=== PATIENT | female | born 1980 | race Caucasian/White ===

== ENCOUNTER 2018-08-13 14:31 | Outpatient (REF) | payer SELFPAY ==
--- NOTE | 2018-08-13 13:15 | PAPFT_PTH ---
PATIENT: Marie Linsday LOC: [facility] U#:[id number] AGE/SX: 38/F ROOM: RE08/13/[address]: Peggy Figueroa NP : 1980 BED: DIS: 08/13/2018 SPEC #: [id number] RECD: 08/13/18 18:11 STATUS: BRINDA SHAFFER #: [id number] CARLITO: 08/13/18 13:[address]: Peggy Figueroa NP DEPT: [facility] Cytology RECD BY: Francesca Wiseman Tissues: 1 - CX/ENDOCX FOR PAP SMEARS Procedures: PAP THIN PREP/UVM Screening HPV DNA PROBE Comments: [id number] (CHLAMYDIA/GC)
[2018-08-14 13:46] LABS: Chlamydia Result Negative; GC Result Negative; Specimen Description SEE COMMENTS
== END 2018-08-13 14:51 ==
LOC: LBN 14:31
PROVIDERS: Visit Provider Nurse Practitioner Women's Health
DX: Z12.4 Encounter for screening for malignant neoplasm of cervix (principal); Z11.51 Encounter for screening for human papillomavirus (HPV)
CPT/HCPCS: 87491; 87591; 88142; 87624

== ENCOUNTER 2018-08-14 07:55 | Outpatient (CLI) | payer SELFPAY ==
--- NOTE | 2018-08-14 09:49 | DI.US_ITS ---
SYMPTOM/DIAGNOSIS: IUD STRINGS NOT AT CERVIX T83.32XA, DISPLACEMENT OF INTRAUTERINE CONTRACEPTIVE DEVICE PELVIC ULTRASOUND: Transabdominal and transvaginal examination was performed. The uterus measures 9 cm long x 4 cm AP x 5.6 cm transverse. There is an intrauterine device seen in the fundal endometrial canal. Cervical Nabothian cysts are present. No myometrial mass is present. The endometrial stripe is not well visualized. The ovaries are visualized and are grossly unremarkable. No free pelvic fluid or hydronephrosis is identified. IMPRESSION: Intrauterine device is visualized in the fundal aspect of the endometrial canal.
== END 2018-08-14 08:15 ==
PROVIDERS: Visit Provider Nurse Practitioner Women's Health
DX: T83.32XA Displacement of intrauterine contraceptive device, initial encounter (principal)
CPT/HCPCS: 76830; 76856

== ENCOUNTER 2019-04-10 21:21 | Emergency (ER) | payer MEDICAID, SELFPAY ==
[2019-04-10 21:21] VITALS: BP 126/75; PULSE 129; RESP 20; TEMP 36.7; O2SAT 97
[2019-04-10 21:24] VITALS: RESP 20
[2019-04-10 21:50] LABS: Abs Immature Grans 0.02 k/cumm (0.0-0.09); Absolute Basophil Count 0.03 k/cumm (0.0-0.2); Absolute Eosinophil Count 0.13 k/cumm (0.0-0.7); Absolute Lymphocyte Count 1.03 k/cumm (1.2-3.4); Absolute Monocyte Count 0.92 k/cumm (0.11-0.7); Absolute Neutrophil Count 6.24 k/cumm (1.2-6.7); Basophils % 0.4; Eosinophils % 1.6; HCT 42.6 % (36.0-46.0); HGB 14.7 g/dL (12.0-15.5); Immature Grans % 0.2 %; Lymphocytes % 12.3; Mean Corp. HGB Concentration 34.5 g/dL (32.0-36.0); Mean Corpuscular Hemoglobin 28.7 pg (27.0-33.0); Mean Platelet Volume 11.1 fL (8.0-11.0); Neutrophils % 74.5; Platelet Count 175 x1000/uL (130-400); RBC 5.13 m/cumm (4.00-5.20); RBC Distribution Width 13.1 % (11.7-14.6); White Blood Cell Count 8.37 k/cumm (4.4-10.8)
[2019-04-10] MEDS: Acetaminophen 500 MG TAB 1000 MG PO (21:52)
[2019-04-10] MEDS: Normal Saline 1,000 ML 1000 ML IV (21:52)
[2019-04-10] MEDS: Ondansetron 4 MG/2 ML VIAL IVP (21:53)
[2019-04-10 22:06] LABS: ETHANOL BLOOD 95.1 mg/dL (<3)
[2019-04-10 22:09] LABS: ALT 25 U/L (14-59); AST 24 U/L (15-37); Albumin 3.8 g/dL (3.4-5.0); Alkaline Phosphatase 69 U/L (46-116); Anion Gap 15.5 mmol/L (3-11); BUN 8 mg/dL (7-18); Bilirubin, Total 0.1 mg/dL (0.2-1.0); CO2 19.5 mmol/L (21.0-32.0); CREATININE 0.81 mg/dL (0.55-1.02); Calcium 8.5 mg/dL (8.5-10.1); Chloride 101 mmol/L (98-107); Glucose 186 mg/dL (74-106); Potassium 3.6 mmol/L (3.5-5.1); Sodium 136 mmol/L (136-145); Total Protein 7.5 g/dL (6.4-8.2)
--- NOTE | 2019-04-10 22:11 | W.ED.GENAD ---
Discharge Plan Disposition Patient Disposition: HOME Condition: Good Discharge Details Chief Complaint: Dizzy/Sync Clinical Impression: Syncope, Dehydration Primary Care Provider: None,None ED Provider: Trevon Diallo Home Meds and New Rx's Prescriptions: No Action medroxyprogesterone [Depo-Provera] 150 mg/mL suspension 150 mg IM [id number] Qty: 1 RF: 3 lgysqrggup-kwmhcug-spwnpjkf [Fiorinal] 1 EACH capsule 1 tab-cap PO Q4H PRN Qty: 30 RF: 1 naproxen sodium [Aleve] 220 mg tablet 220 mg PO BID RF: 0 Discharge Instructions Instructions: Dehydration (ED), Syncope (ED) Additional Instructions: At this time I suspect that your cause of fainting was dehydration combined with the alcohol. Please make sure to drink 10 to 12 cups of water per day. Take Tylenol or Motrin as needed for your flulike illness. If you notice any worsening of your symptoms, or any new symptoms such as vomiting, diarrhea, fever, chills, shortness of breath, chest pain, numbness, weakness, or fainting , please return immediately to the emergency department for reevaluation. Please follow up with your primary care provider as soon as possible for reassessment and reevaluation. As always, it was a pleasure participating in your medical care today. Medical Decision Making 38-year-old female with no significant past medical history who presents today for evaluation of syncope. Patient states that her child was just diagnosed with a flulike illness 4 days ago, she is subsequently caught though symptoms of fever, chills, congestion, runny nose. However today was her birthday, she went to the bar, took 1 NyQuil, had a few drinks, took a few shots, and unfortunately after this when she was standing got very lightheaded and passed out. She had a barstool with the back of her head on the right. She was able to be awoken easily, she is able to ambulate after that. Signs are pain in her posterior right scalp she denies any other complaints. She has been drinking a fair amount of coffee throughout the day as well. The patient denies any chest pain, palpitations or shortness of breath. She denies a history of syncope, family history of at an early age, or dysrhythmias. Physical exam demonstrates no signs of significant trauma. She does have mild tenderness over the right posterior mastoid process. No midline cervical spine tenderness. I suspect the patient's symptoms are likely from notable dehydration in combination with being sick and then mild to moderate amount of alcohol intake. However we will evaluate for acute intracranial abnormality with a CT scan of the head. EKG shows no significant abnormalities. Electrolytes unremarkable. We will continue to monitor and closely reassess. We will rehydrate as well. 10:51 PM Patient's laboratory work-up is returned, patient demonstrates no significant abnormality, she does show evidence of mild dehydration, no white count, no bandemia. Renal function stable. Troponin normal, EKG unremarkable. CT scan has returned and demonstrates no acute process per virtual radiology. No significant abnormality. No evidence of bleed. Patient feels much better and is asking to go home. She has been rehydrated. She shows no signs of clinical intoxication at this time. At this time I do feel that she is stable for discharge. I feel her syncope was likely secondary to her alcohol, dehydration, and viral URI. And inconsistent with a cardiac etiology. Patient did get up and ambulated well with no signs of difficulty or abnormality. Discussed red flags which to return. I have extensively reviewed the treatment plan and discharge instructions with the patient. I have addressed all patient concerns at this time. The patient was made aware of what symptoms to monitor for that would warrant a return to the emergency department. Discussed the plan with the patient, they demonstrate verbal understanding and agreement with our assessment and plan at this time. EKG 21: 30 Rate 126, intervals normal, sinus tachycardia, no significant ST elevations or depressions. No evidence of STEMI. There is inverted T wave in lead III, but no other significant abnormalities. FINDINGS: Brain: No evidence for acute transcortical infarct. No mass effect or midline shift. No extra-axial collection. No acute intracranial hemorrhage. Basal cisterns are patent. Ventricles: Normal. No ventriculomegaly. Bones/joints: Unremarkable. No acute fracture. Sinuses: Visualized sinuses are unremarkable. No fluid levels. Mastoid air cells: Visualized mastoid air cells are well aerated. Soft tissues: Unremarkable. IMPRESSION: No acute intracranial hemorrhage or mass effect. FINDINGS: Vertebrae: No acute fracture or traumatic subluxation. No spondylolisthesis. The atlantooccipital and atlantoaxial articulations are intact. Facet joint alignments are maintained. Discs/Spinal canal/Neural foramina: No disc herniations. No spinal canal stenosis. No neural foraminal narrowing. Other bones/joints: Occipital condyles are intact. Prevertebral Space: No prevertebral soft tissue swelling. Soft tissues: Unremarkable. Lungs: Lung apices are normal. IMPRESSION: No acute fracture or traumatic subluxation. Thank you for allowing us to participate in the care of your patient. Dictated and Authenticated by: Alvaro Felton MD 04/10/2019 10:46 PM Eastern Time ([place] & [place]) HPI General Date/Time Provider Initiated Documentation: 04/10/19 21:26. HPI Narrative: 38-year-old female with no significant past medical history who presents today for evaluation of syncope. Patient states that her child was just diagnosed with a flulike illness 4 days ago, she is subsequently caught though symptoms of fever, chills, congestion, runny nose. However today was her birthday, she went to the bar, took 1 NyQuil, had a few drinks, took a few shots, and unfortunately after this when she was standing got very lightheaded and passed out. She had a barstool with the back of her head on the right. She was able to be awoken easily, she is able to ambulate after that. Signs are pain in her posterior right scalp she denies any other complaints. She has been drinking a fair amount of coffee throughout the day as well. The patient denies any chest pain, palpitations or shortness of breath. She denies a history of syncope, family history of at an early age, or dysrhythmias. She has no other complaints at this time. No other modifying factors. Related Data Home Medications Medication Instructions Recorded Confirmed cnbzqqaweh-vwkwnle-quckernv 1 tab-cap PO Q4H PRN #30 tab-cap 04/23/17 04/10/19 [Fiorinal 50-325-40 Mg Capsule] medroxyprogesterone 150 mg/mL 150 mg IM [id number] #1 ml 08/19/18 04/10/19 intramuscular suspension naproxen sodium 220 mg tablet 220 mg PO BID tab 12/02/18 04/10/19 Previous Rx's Medication Instructions Recorded rxsbcynvja-lscfjpz-ustfyozx 1 tab-cap PO Q4H PRN #30 tab-cap 04/23/17 [Fiorinal 50-325-40 Mg Capsule] medroxyprogesterone 150 mg/mL 150 mg IM [id number] #1 ml 08/19/18 intramuscular suspension Allergies Allergy/AdvReac Type Severity Reaction Status Date / Time erythromycin base Allergy Intermediate Vomitting, Verified 04/10/19 21:24 itchy chocolate flavor Allergy Mild Verified 04/10/19 21:24 Penicillins Allergy Mild Uncertain-infant Verified 04/10/19 21:24 reaction coconut flavor Allergy Anaphylaxsi Uncoded 04/10/19 21:24 s Dust AdvReac Uncoded 04/10/19 21:24 General Stated Complaint: Dizzy/Sync IMANI: 3 Review of Systems All systems reviewed & are unremarkable except as noted in HPI and below PFSH Social History Smoking/Tobacco Use Status: Current every day Alcohol Intake: current Drug use: Never Substance use type: does not use Do you feel safe at home: Yes Do you feel safe in your relationship?: Yes Female Reproductive History Menstrual Age of Menarche: 15 control method: permanent sterilization History History 4 Para 4 Hx # Term Pregnancies Multiple births Hx # Pregnancies Ectopic pregnancies AB induced Hx Number of Living Children AB spontaneous Exam Narrative Exam Narrative: 1.Const: Well-nourished, Well-developed, appearing stated age 2.Eyes: PERRL, no conjunctival injection, and symmetrical lids. 3.ENT: Atraumatic external nose and ears. Moist MM. Neck: Symmetric, trachea midline, No thyromegaly. There is no evidence of raccoon eyes, sanchez sign, CSF rhinorrhea, mastoid tenderness, cranial crepitus, hemotympanum, exophthalmos, or hyphema. Patient demonstrates intact dentition with no signs of tooth avulsion or fracture, no signs of jaw deformity, no evidence of a LeFort's fracture, with an intact palate, nose and orbital region. There is no evidence of a nasal septal hematoma. No proptosis. Jaw closes symmetrically. Airway is clear. Minimal tenderness over the right mastoid. Patient demonstrates good movement of cervical neck. There is no nuchal rigidity, no nuchal tenderness. Patient is able to flex the neck without any difficulty or significant pain. Negative Kernig's and Brudzinski sign. 4.CVS: +S1/S2, No murmurs or gallops. Peripheral pulses 2+ and equal in all extremities. Brisk capillary refill in all extremities. 5.RESP: Unlabored respiratory effort. Clear to auscultation bilaterally. No wheezes rales or rhonchi 6.GI: Soft, Nontender/Nondistended, No hepatosplenomegaly. No guarding or rebound. 7.MSK: Normocephalic/Atraumatic, Extremities w/o deformity or ttp No cyanosis or clubbing, Normal movement of all extremities. No midline cervical thoracic or lumbar spine tenderness. No pain in the neck. 8.Skin: Warm, Dry. No rashes or lesions. 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 Sensation grossly intact, no focal neurologic deficits. All 6 cardinal planes of vision are fully intact. No evidence of rotatory or vertical nystagmus. The patient demonstrated a normal hlajel-zmps-pakfzu, good dexterity. There was no evidence of dysdiadochokinesia. Patient was able to ambulate without difficulty. There was no wide-based gait. Romberg testing was normal. Bvgx-hs-lkte testing was normal. Sensation was intact bilaterally as well as muscle strength bilaterally for all extremities. Patient was able to verbalize butter cup with no slurring, or miss pronunciation. 10.Psych: (AAO) x3. Appropriate mood and affect Course Vital Signs Vital signs: Vital Signs Temperature 36.7 C 04/10/19 21:21 Pulse 129 H 04/10/19 21:21 Respiratory Rate 20 04/10/19 21:21 Blood Pressure 126/75 04/10/19 21:21 Pulse Oximetry 97 04/10/19 21:21 Temperature 36.7 C 04/10/19 21:21 Temperature Source Temporal Artery Scan 04/10/19 21:21 Pulse 129 H 04/10/19 21:21 Respiratory Rate 20 04/10/19 21:24 Respiratory Effort Non-Labored 04/10/19 21:24 Respiratory Depth Normal 04/10/19 21:24 Respiratory Pattern Normal 04/10/19 21:24 Blood Pressure 126/75 04/10/19 21:21 Pulse Oximetry 97 04/10/19 21:21 Oxygen Delivery Method Room Air 04/10/19 21:21 Oxygen Flow Rate 0 04/10/19 21:21 Pain Level 4 04/10/19 21:21 Lab/Test Results Lab/Test Results: 04/10/19 21:53 Nasopharynx Influenza Types A,B Antigen - Pending Laboratory Tests Range/Units 04/10/19 21:46 WBC (4.4-10.8) k/cumm 8.37 RBC (4.00-5.20) m/cumm 5.13 Hgb (12.0-15.5) g/dL 14.7 Hct (36.0-46.0) % 42.6 MCV (80-95) fL 83.0 MCH (27.0-33.0) pg 28.7 MCHC (32.0-36.0) g/dL 34.5 RDW (11.7-14.6) % 13.1 Plt Count (130-400) x1000/uL 175 MPV (8.0-11.0) fL 11.1 H Immature Gran % % 0.2 Neutrophils % 74.5 Lymphocytes % 12.3 Monocytes % 11.0 Eosinophils % 1.6 Basophils % 0.4 Absolute Neutrophils (1.2-6.7) k/cumm 6.24 Absolute Lymphocytes (1.2-3.4) k/cumm 1.03 L Absolute Monocytes (0.11-0.7) k/cumm 0.92 H Absolute Eosinophils (0.0-0.7) k/cumm 0.13 Absolute Basophils (0.0-0.2) k/cumm 0.03
--- NOTE | 2019-04-10 22:26 | DI.CT_ITS ---
EXAM: CT HEAD CERVICAL SPINE WO CT HEAD CERVICAL SPINE WO CLINICAL HISTORY: fall, etoh, pain right mastoid after trauma. fall, etoh, pain right mastoid after trauma TECHNIQUE: Imaging Protocol: Axial computed tomography images with coronal and sagittal reformatted images were created and reviewed COMPARISON: No exams were available for comparison FINDINGS: Head CT Ventricles and Extra axial spaces: Normal in size and morphology for the patient's age. Hemorrhage: None. Cerebral parenchyma: Normal. Midline shift: None. Brainstem/Cerebellum: Normal. Calvarium: Normal. Visualized Paranasal sinuses/Mastoids: Clear. IMPRESSION: No acute abnormality. FINDINGS: Cervical Spine CT The exam is somewhat limited by patient body habitus. BONES: Vertebral body heights are maintained. Intervertebral disc spaces are normal. Alignment is normal. There is no evidence of acute fracture. SOFT TISSUES: No paraspinal hematoma. The airway appears intact. No pneumothorax is seen at the edgar g apices. IMPRESSION: No acute abnormality. DATA REPOSITORY: All CT scans at this facility are submitted to the National Radiology Data Registry (NRDR) Dose Index Registry (DIR) with the [employer] (ACR). RADIATION OPTIMIZATION: All CT scans at this facility use at least one of these dose optimization te chniques: automated exposure control; mA and/or kV adjustment per patient size (includes targeted exa ms where dose is matched to clinical indication); or iterative reconstruction.
[2019-04-10 22:41] LABS: Troponin I < 0.05 ng/Ml (<0.06)
--- NOTE | 2019-04-10 22:47 | DI.VRAD_ITS ---
PROCEDURE INFORMATION: Exam: CT Head Without Contrast Exam date and time: 04/10/2019 9:37 PM Age: 38 years old Clinical indication: Injury or trauma; Initial encounter; Blunt trauma; Patient HX: Fall, ETOH, pain right mastoid after trauma TECHNIQUE: Imaging protocol: Computed tomography of the head without contrast. COMPARISON: No relevant prior studies available. FINDINGS: Brain: No evidence for acute transcortical infarct. No mass effect or midline shift. No extra-axial collection. No acute intracranial hemorrhage. Basal cisterns are patent. Ventricles: Normal. No ventriculomegaly. Bones/joints: Unremarkable. No acute fracture. Sinuses: Visualized sinuses are unremarkable. No fluid levels. Mastoid air cells: Visualized mastoid air cells are well aerated. Soft tissues: Unremarkable. IMPRESSION: No acute intracranial hemorrhage or mass effect. PROCEDURE INFORMATION: Exam: CT Cervical Spine Without Contrast Exam date and time: 04/10/2019 9:37 PM Age: 38 years old Clinical indication: Injury or trauma; Initial encounter; Blunt trauma; Patient HX: Fall, ETOH, pain right mastoid after trauma TECHNIQUE: Imaging protocol: Computed tomography images of the cervical spine without contrast. COMPARISON: No relevant prior studies available. FINDINGS: Vertebrae: No acute fracture or traumatic subluxation. No spondylolisthesis. The atlantooccipital and atlantoaxial articulations are intact. Facet joint alignments are maintained. Discs/Spinal canal/Neural foramina: No disc herniations. No spinal canal stenosis. No neural foraminal narrowing. Other bones/joints: Occipital condyles are intact. Prevertebral Space: No prevertebral soft tissue swelling. Soft tissues: Unremarkable. Lungs: Lung apices are normal. IMPRESSION: No acute fracture or traumatic subluxation. Dictated and Authenticated by: Alvaro Felton MD. Ordering:CHANG Lester MD
[2019-04-10 22:58] VITALS: BP 114/65; PULSE 104; RESP 16; TEMP 37.1; O2SAT 99
== END 2019-04-10 23:09 | disposition home or self-care (01) ==
PROVIDERS: Emergency Provider Student in an Organized Health Care Education/Training Program
DX: J10.1 Influenza due to other identified influenza virus with other respiratory manifestations (principal); E86.0 Dehydration; S09.90XA Unspecified injury of head, initial encounter; W19.XXXA Unspecified fall, initial encounter
CPT/HCPCS: 36415; 80053; 87449; 93005; 96361; 96374; 99285; 70450; 72125; 80320; 84484; 85025; 93010; 99284; J2405

== ENCOUNTER 2019-07-12 21:32 | Outpatient (REF) | payer MEDICAID, SELFPAY ==
[2019-07-14 14:59] LABS: Chlamydia Result Negative (Negative); GC Result Negative (Negative)
== END 2019-07-12 21:52 ==
LOC: LBN 21:32
PROVIDERS: Visit Provider Nurse Practitioner Family
DX: Z11.3 Encounter for screening for infections with a predominantly sexual mode of transmission (principal)
CPT/HCPCS: 87491; 87591

== ENCOUNTER 2019-10-25 10:59 | Outpatient (REF) | payer MEDICAID, SELFPAY ==
--- NOTE | 2019-10-25 10:30 | PAPFT_PTH ---
PATIENT: Marie Lindsay LOC: [facility] U#:[id number] AGE/SX: 39/F ROOM: RE10/25/[address]: TREY Noe : 1980 BED: DIS: 10/25/2019 SPEC #: [id number] RECD: 10/25/19 12:59 STATUS: BRINDA REQ #: [id number] CARLITO: 10/25/19 10:[address]: Saloni Roberts DEPT: [facility] Cytology RECD BY: Francesca Wiseman ENTERED: 10/25/19 12:59 SP TYPE: PAPFT MARSHA DR: Unknown,Unknown Tissues: 1 - CX/ENDOCX FOR PAP SMEARS Procedures: PAP THIN PREP/UVM Screening HPV DNA PROBE Comments: [id number]
== END 2019-10-25 11:19 ==
LOC: LBN 10:59
PROVIDERS: Visit Provider Nurse Practitioner Family
DX: R87.810 Cervical high risk human papillomavirus (HPV) DNA test positive (principal); R87.610 Atypical squamous cells of undetermined significance on cytologic smear of cervix (ASC-US)
CPT/HCPCS: 88142; 87624

== ENCOUNTER 2020-01-13 07:21 | Outpatient (CLI) | payer MEDICAID, SELFPAY ==
[2020-01-16 20:55] LABS: Patient Race White; SARS-CoV-2 RNA Undetected (Undetected); SARS-CoV-2 Specimen Source Nasal
== END 2020-01-13 07:41 ==
PROVIDERS: Visit Provider Family Medicine
DX: Z20.828 Contact with and (suspected) exposure to other viral communicable diseases (principal)
CPT/HCPCS: U0003

== ENCOUNTER 2020-01-24 11:52 | Outpatient (REF) | payer MEDICAID, SELFPAY ==
--- NOTE | 2020-01-24 10:50 | CER_PTH ---
PATIENT: Marie Lindsay LOC: [facility] U#:[id number] AGE/SX: 39/F ROOM: RE01/24/[address]: Ayleen Akbar DO : 1980 BED: DIS: 01/24/2020 SPEC #: [id number] RECD: 01/24/20 12:58 STATUS: BRINDA REQ #: [id number] CARLITO: 01/24/20 10:[address]: Ayleen Akbar DEPT: Surgical Specimen RECD BY: Francesca Wiseman ENTERED: 01/24/20 12:58 SP TYPE: CER MARSHA DR: Unknown,Unknown Tissues: 1 - CERVICAL BIOPSY 2 - ENDOCERVICAL BX/CURRETTE Procedures: GROSS AND MICRO LEVEL 4 Comments: [id number]
== END 2020-01-24 12:12 ==
LOC: LBN 11:52
PROVIDERS: Visit Provider Obstetrics & Gynecology
DX: N88.8 Other specified noninflammatory disorders of cervix uteri (principal); R87.610 Atypical squamous cells of undetermined significance on cytologic smear of cervix (ASC-US); R87.810 Cervical high risk human papillomavirus (HPV) DNA test positive
CPT/HCPCS: 88305

== ENCOUNTER 2020-02-14 12:39 | Outpatient (CLI) | payer MEDICAID, SELFPAY ==
[2020-02-16 17:06] LABS: COVID-19 RT-PCR Result NEGATIVE (Negative)
== END 2020-02-14 12:59 ==
PROVIDERS: Visit Provider Family Medicine
DX: Z11.59 Encounter for screening for other viral diseases (principal)
CPT/HCPCS: U0003

== ENCOUNTER 2020-08-23 09:29 | Emergency (ER) | payer MEDICAID, SELFPAY ==
--- NOTE | 2020-08-23 09:30 | DI.RAD_ITS ---
Exam(s) XR FOOT LT COMPLETE EXAM: XR FOOT LT COMPLETE CLINICAL HISTORY: Fall, R/O Fracture. TECHNIQUE: 2D digital imaging was performed. COMPARISON: No exams were available for comparison FINDINGS: There is no evidence of acute fracture nor diastasis of the Lisfranc joint on these nonweightbearing views. Accessory ossicles are noted lateral to the cuboid bone as well as just proximal to the navic ular tuberosity which is probably a sesamoid within the distal tibialis posterior tendon. No radiopa que foreign body. No osseous lesions. No osseous tarsal coalition. IMPRESSION: No obvious fractures evident. DATA REPOSITORY: RADIATION DOSE DELIVERED:
--- NOTE | 2020-08-23 09:30 | DI.RAD_ITS ---
Exam(s) XR ANKLE LT COMPLETE EXAM: XR ANKLE LT COMPLETE CLINICAL HISTORY: Fall, R/O Fracture. TECHNIQUE: 2D digital imaging was performed. COMPARISON: No exams were available for comparison FINDINGS: There is no evidence of fracture or widening of the mortise. Talar dome appears unremarkable. No de generative changes. No osseous tarsal coalition. Bone density appears normal IMPRESSION: No fracture evident. DATA REPOSITORY: RADIATION DOSE DELIVERED:
[2020-08-23 09:31] VITALS: BP 138/85; PULSE 86; RESP 16; TEMP 36.6; O2SAT 98
--- NOTE | 2020-08-23 09:38 | ED.GENADUL_ITS ---
Discharge Plan Disposition Patient Disposition: HOME Condition: Stable Discharge Details Clinical Impression: Inversion sprain of left ankle Primary Care Provider: Unknown,Unknown ED Provider: Rachel Estes Home Meds and New Rx's Prescriptions: No Action medroxyprogesterone [Depo-Provera] 150 mg/mL suspension 150 mg IM Q12W Qty: 1 RF: 3 naproxen sodium [Aleve] 220 mg tablet 220 mg PO DAILY PRNRF: 0 leybpndqjt-ukrhsve-esufaxnl [Fiorinal 50-325-40 Mg Capsule] 1 EACH capsule 1 tab-cap PO Q4H PRN PRNRF: 0 Discharge Instructions Instructions: Ankle Sprain (ED) Additional Instructions: Wear walking boot for comfort crutches as needed. Rest ice compression elevation. May need to elevate it for at least 3 to 4 days. Insert ibuprofen. Sprains may take up to 6 weeks or longer to completely heal. He may still have some pain swelling for the duration of the 6 weeks. Follow up with primary care provider in 3-5 days. Return to ED sooner if any worsening or concerns. Increase oral fluids. If you continue to have problems you may follow-up with orthopedics in 1 to 2 weeks as Referrals: Moustapha Queen MD [ [facility] STAFF PHYSICIAN] - Medical Decision Making 40-year-old female presents to the ER chief complaint of left ankle and foot pain status post a mechanical fall which occurred on Friday night. Patient states that she stepped into a hole and inverted her left ankle and fell over onto her left side. She was able to get up after the fall. She has been taking Tylenol and ibuprofen since then with little to no relief. She reports increased pain with ambulation, ankle flexion and extension. She does drive a standard car and uses the clutch is also a instructor business education by trade. She has a past medical history of menstrual migraines. She is a current everyday smoker. Denies any illicit drugs. She currently is on the Depo-Provera injection denies chance of . X-ray left foot and ankle ordered to rule out fracture, ibuprofen 800 mg ordered. Patient placed in walking boot given crutches discussed x-ray results, verbalized understanding. Instructed on rest ice compression elevation follow-up with Ortho if no better in 4 to 6 weeks. This text was generated using [employer] system, please disregard any oddities of phrase or misspellings. HPI General Mode of arrival: ambulatory . Date/Time Provider Initiated Documentation: 08/23/20 09:29 . Limitations to Documentation: no limitations . Information obtained by: patient . HPI Narrative: 40-year-old female presents to the ER chief complaint of left ankle and foot pain status post a mechanical fall which occurred on Friday night. Patient states that she stepped into a hole and inverted her left ankle and fell over onto her left side. She was able to get up after the fall. She has been taking Tylenol and ibuprofen since then with little to no relief. She reports increased pain with ambulation, ankle flexion and extension. She does drive a standard car and uses the clutch is also a instructor business education by trade. She has a past medical history of menstrual migraines. She is a current everyday smoker. Denies any illicit drugs. She currently is on the Depo-Provera injection denies chance of . Related Data Home Medications Medication Instructions Recorded Confirmed naproxen sodium 220 mg tablet 220 mg PO DAILY PRN tab 07/12/19 08/23/20 medroxyprogesterone 150 mg/mL 150 mg IM Q12W #1 ml 04/14/20 08/23/20 intramuscular suspension brsnwxliyb-numanew-suziezdl 1 tab-cap PO Q4H PRN PRN 08/23/20 08/23/20 [Fiorinal 50-325-40 Mg Capsule] Previous Rx's Medication Instructions Recorded medroxyprogesterone 150 mg/mL 150 mg IM Q12W #1 ml 04/14/20 intramuscular suspension Allergies Allergy/AdvReac Type Severity Reaction Status Date / Time erythromycin base Allergy Intermediate Vomitting, Verified 08/23/20 09:39 itchy chocolate flavor Allergy Mild Verified 08/23/20 09:39 Penicillins Allergy Mild Uncertain- Verified 08/23/20 09:39 reaction coconut flavor Allergy Anaphylaxsi Uncoded 08/23/20 09:39 s Dust AdvReac Uncoded 08/23/20 09:39 General IMANI: 3 Review of Systems All systems reviewed & are unremarkable except as noted in HPI and below Musculoskeletal Musculoskeletal: Reports as per HPI, Denies deformity, Reports arthralgias (Left foot and ankle), Denies joint swelling, Denies loss of height, Denies numbness and Reports radiating pain into limb Neurologic Neurologic: Denies numbness PFSH Surgical History section X4 Social History Smoking/Tobacco Use Status: Current every day Smoking risk assessment performed?: Yes Alcohol Intake: current Alcohol Intake frequency: holidays/special occasions only Drug use: Never Substance use type: does not use Do you feel safe at home: Yes Do you feel safe in your relationship?: Yes Female Reproductive History Menstrual Age of Menarche: 15 control method: permanent sterilization History History 4 Para 4 Hx # Term Pregnancies Multiple births Hx # Pregnancies Ectopic pregnancies AB induced Hx Number of Living Children AB spontaneous Exam Narrative Exam Narrative: Constitutional: Alert and oriented x3. Appears stated age. Normal body habitus. Head: Normocephalic, no obvious signs of trauma, no hematoma . Eyes: Eyelids symmetrical without lesions, discharge, or swelling. ENT: External ear normal to inspection Chest: RRR, Normal S1, S2, distal pulses intact. Resp: Breathing eupneic. Musculoskeletal: Normal gait, 5/5 strength to all four extremities. Complaining of medial and lateral malleolus tenderness, medial foot tenderness to palpation, dorsal pedal pulses intact and cap refill less than 2 seconds distal movement intact of toes, tenderness noted with palpation of Achilles tendon. Reports pain radiating up to left leg up to left knee does have a history of left knee problems. No other signs of trauma no other complaints at this time. Skin: No suspicious rashes or lesions. Capillary refill less than 2 sec. Hematologic: No ecchymosis no contusions no abrasions.
[2020-08-23] MEDS: Ibuprofen 800 MG TAB PO (09:46)
== END 2020-08-23 11:02 | disposition home or self-care (01) ==
PROVIDERS: Emergency Provider Registered Nurse Emergency
DX: S93.492A Sprain of other ligament of left ankle, initial encounter (principal); W17.2XXA Fall into hole, initial encounter
CPT/HCPCS: 29515; 99284; 73610; 73630; 99283

== ENCOUNTER 2020-10-16 17:42 | Emergency (ER) | payer MEDICAID, SELFPAY ==
[2020-10-16 17:49] VITALS: BP 136/92; PULSE 78; RESP 16; TEMP 37.1; O2SAT 98
--- NOTE | 2020-10-16 18:15 | DI.RAD_ITS ---
Exam(s) XR FOOT RT COMPLETE EXAM: XR FOOT RT COMPLETE CLINICAL HISTORY: proximal 5th metatarsal pain after injury TECHNIQUE: COMPARISON: CR XR FOOT LT COMPLETE from 08/23/2020 FINDINGS: Three views were obtained. There is no evidence of fracture or dislocation. IMPRESSION: RADIATION DOSE DELIVERED: Total DLP
--- NOTE | 2020-10-16 18:19 | ED.GENADUL_ITS ---
Discharge Plan Disposition Patient Disposition: HOME Condition: Good Discharge Details Clinical Impression: Contusion of foot Primary Care Provider: Unknown,Unknown ED Provider: Dannielle Corea Home Meds and New Rx's Prescriptions: Continued medroxyprogesterone [Depo-Provera] 150 mg/mL suspension 150 mg IM Q12W Qty: 1 RF: 3 rhoysxwmie-xesaqin-vgqkhzyg 50-325-40 mg capsule 1 cap PO Q4H PRN MDD 1 PRN (Reason: migraine headache) Qty: 30 RF: 0 naproxen sodium [Aleve] 220 mg tablet 220 mg PO DAILY PRNRF: 0 Discharge Instructions Instructions: Foot Contusion (ED) Additional Instructions: Imaging is reassuring here today. Please encourage rest, ice, elevation. Tylenol and/or ibuprofen as needed for discomfort. Please take as directed on the packaging. I have asked care management to help arrange for follow up with local primary care. If you develop fevers/chills, increased pain, or other new/worsening symptoms please seek care urgently once again. Discharge Data Discharge Date/Time-TO BE ENTERED AT DEPARTURE: 10/16/20 19:34 Medical Decision Making Patient is a pleasant 40-year-old female presenting today with chief complaint of right foot pain. She reports prior to arrival she misstepped between 2 cinderblocks and suffered a rotational injury. Since then has been having significant pain along the lateral aspect of the right foot. No previous injuries or fractures to this area. States that she has some tingling in the fourth and fifth toes. On exam, patient appears nontoxic. She is just capillary refill, 2+ distal pulses. Full range of motion of the ankle with no pain on palpation of this area. Achilles is intact. No heel pain. No midfoot pain. Able to move all of her toes. Pain is elicited with palpation over the fifth metatarsal, maximal proximally. Concern for potential fracture. Will obtain x-ray. Patient took ibuprofen prior to arrival, will augment this with Tylenol. FINDINGS: Bones/joints: There is no evidence of acute fracture.There is no evidence of malalignment or dislocation. Soft tissues: Normal. IMPRESSION: There is no evidence of acute fracture.There is no evidence of malalignment or dislocation. Discussed these findings with the patient. Advised likely contusion. Encourage rest, ice, elevation. Tylenol and/or ibuprofen as needed for discomfort. Will sit with a postoperative shoe to help with discomfort. Patient does not have a local primary care, have asked our care management team to place a referral for local primary with plan for follow-up in the next 2 weeks for reevaluation. Return precautions were discussed. All of her questions and concerns were addressed, she is in agreement with this plan. HPI General Mode of arrival: ambulatory . Date/Time Provider Initiated Documentation: 10/16/20 18:19 . Limitations to Documentation: no limitations . Information obtained by: patient and RN notes reviewed . History of Present Illness 40 year old F presents to the emergency department with the chief complaint of right foot pain, described as moderate, with intensity rated at 7. Quality is described as aching, and is localized to the right and lower extremity. Patient reports no radiation. Patient started experiencing this hour(s) and it has been constant. Immobilization improves symptom(s), Mov ement worsens symptoms . Patient notes no other symptoms.. Patient did receive the following treatments prior to arrival, none Related Data Home Medications Medication Instructions Recorded Confirmed naproxen sodium 220 mg tablet 220 mg PO DAILY PRN tab 07/12/19 10/16/20 medroxyprogesterone 150 mg/mL 150 mg IM Q12W #1 ml 04/14/20 10/16/20 intramuscular suspension epgagzzdvx-pmgqyjc-dhyuqgdb 50 1 cap PO Q4H PRN PRN #30 cap MDD 1 09/29/20 10/16/20 mg-325 mg-40 mg capsule Previous Rx's Medication Instructions Recorded medroxyprogesterone 150 mg/mL 150 mg IM Q12W #1 ml 04/14/20 intramuscular suspension idhemyemql-vaiiqnn-plemapkp 50 1 cap PO Q4H PRN PRN #30 cap MDD 1 09/29/20 mg-325 mg-40 mg capsule Allergies Allergy/AdvReac Type Severity Reaction Status Date / Time erythromycin base Allergy Intermediate Vomitting, Verified 10/16/20 17:55 itchy chocolate flavor Allergy Mild Verified 10/16/20 17:55 Penicillins Allergy Mild Uncertain-infant Verified 10/16/20 17:55 reaction coconut flavor Allergy Anaphylaxsi Uncoded 10/16/20 17:55 s Dust AdvReac Uncoded 10/16/20 17:55 General Stated Complaint: Orthopedic IMANI: 4 Review of Systems Constitutional Constitutional: Reports as per HPI, Denies chills, Denies fever(s), Denies headache(s) and Denies weakness ENT Ears, Nose, Mouth, and Throat: Denies headache(s) Cardiovascular Cardiovascular: Reports as per HPI Respiratory Respiratory: Reports as per HPI and Denies cough Musculoskeletal Musculoskeletal: Reports as per HPI and Denies tingling Integumentary/Breasts Skin/Breast: Reports as per HPI, Denies rash and Denies wounds Neurologic Neurologic: Reports as per HPI, Denies headache(s), Denies tingling, Denies paresthesias and Denies weakness PFSH Surgical History section X4 Social History Smoking/Tobacco Use Status: Current every day Tobacco Type: cigarettes Smoking risk assessment performed?: Yes Alcohol Intake: current Alcohol Intake frequency: holidays/special occasions only Drug use: Never Substance use type: does not use Current gender identity: female Do you feel safe at home: Yes Do you feel safe in your relationship?: Yes Female Reproductive History Menstrual Age of Menarche: 15 control method: permanent sterilization History History 4 Para 4 Hx # Term Pregnancies Multiple births Hx # Pregnancies Ectopic pregnancies AB induced Hx Number of Living Children AB spontaneous Exam Const General: cooperative, healthy appearing, comfortable, no acute distress, well developed and well groomed Nutritional Appearance: average body habitus and well nourished Orientation: alert and awake Resp Effort & Inspection: normal respiratory effort, able to speak in complete sentences and no respiratory distress Cardio Rate: regular rate Rhythm: regular rhythm Skin General skin exam: no rashes or lesions noted Lesions: no lesions Rashes: no rashes Trauma: no lacerations or abrasions Neuro General: patient alert and patient awake Cognition: normal cognition Speech: speech normal Motor: muscle tone normal throughout Sensory Exam: no sensory deficits noted Extrem Ankle/foot/toe images: 1. Area of discomfort. No visible or palpable deformity, discoloration. She has 2+ distal pulses, brisk capillary refill. Able to move toes and ankle fully. Se nsation intact. No pain over calcaneus. No pain over midfoot. Pain is maximal over the proximal 5th metatarsal. Psych Appearance: grossly normal and well kempt Mental Status: mental status grossly normal Speech and Movement: speech and movement normal Course Vital Signs Vital signs: Vital Signs Temperature 37.1 C 10/16/20 17:49 Pulse 78 10/16/20 17:49 Respiratory Rate 16 10/16/20 17:49 Blood Pressure 136/92 H 10/16/20 17:49 Pulse Oximetry 98 10/16/20 17:49 Temperature 37.1 C 10/16/20 17:49 Temperature Source Temporal Artery Scan 10/16/20 17:49 Pulse 78 10/16/20 17:49 Respiratory Rate 16 10/16/20 17:49 Respiratory Effort Non-Labored 10/16/20 17:53 Blood Pressure 136/92 H 10/16/20 17:49 Blood Pressure Position Sitting 10/16/20 17:49 Pulse Oximetry 98 10/16/20 17:49 Oxygen Delivery Method Room Air 10/16/20 17:49 Oxygen Flow Rate 0 10/16/20 17:49 Pain Level 7 10/16/20 17:56
[2020-10-16] MEDS: Acetaminophen 325 MG TAB 650 MG PO (18:30)
--- NOTE | 2020-10-16 18:52 | DI.VRAD_ITS ---
PROCEDURE INFORMATION: Exam: XR Right Foot Exam date and time: 10/16/2020 6:24 PM Age: 40 years old Clinical indication: Foot; Right; Patient HX: Proximal 5th metatarsal pain after injury TECHNIQUE: Imaging protocol: XR Right foot. Views: 3 or more views. COMPARISON: CR RIGHT ANKLE COMPLETE 12/13/2016 8:01 PM FINDINGS: Bones/joints: There is no evidence of acute fracture.There is no evidence of malalignment or dislocation. Soft tissues: Normal. IMPRESSION: There is no evidence of acute fracture.There is no evidence of malalignment or dislocation. Dictated and Authenticated by: Kerrie Plummer MD. Ordering:BRITNEY Spicer MD
--- NOTE | 2020-10-17 06:39 | NUR.NOTE ---
Nursing Note: referral to care management 10/17/20 patient needs pcp. - libl
== END 2020-10-16 19:34 | disposition home or self-care (01) ==
PROVIDERS: Emergency Provider Physician Assistant
DX: S90.31XA Contusion of right foot, initial encounter (principal); X50.1XXA Overexertion from prolonged static or awkward postures, initial encounter
CPT/HCPCS: 99283; 73630

== ENCOUNTER 2020-11-14 08:25 | Outpatient (CLI) | payer MEDICAID, SELFPAY ==
--- NOTE | 2020-11-14 08:15 | DI.RAD_ITS ---
Exam(s) XR KNEE LT 3V AP,LAT,DAVID EXAM: XR KNEE LT 3V AP,LAT,DAVID CLINICAL HISTORY: L knee pain. TECHNIQUE: 2D digital imaging was performed. COMPARISON: CR LEFT KNEE 3 VIEW COMPLETE from 12/13/2016 FINDINGS: BONES: No acute fracture is present. No bony destructive lesion is seen. JOINTS: The knee is normally aligned. No joint effusion is seen. SOFT TISSUE: Normal. IMPRESSION: Normal radiographs of the left knee. DATA REPOSITORY: RADIATION DOSE DELIVERED:
== END 2020-11-14 08:26 | disposition home or self-care (01) ==
LOC: DIORS 08:25
PROVIDERS: Visit Provider Physician Assistant
DX: M25.562 Pain in left knee (principal)
CPT/HCPCS: 73562

== ENCOUNTER 2020-12-22 13:00 | Outpatient (REF) | payer MEDICAID, SELFPAY ==
--- NOTE | 2020-12-22 10:30 | PAPFT_PTH ---
PATIENT: Marie Lindsay LOC: [facility] U#:[id number] AGE/SX: 40/F ROOM: RE12/22/[address]: TREY Noe : 1980 BED: DIS: 12/22/2020 SPEC #: [id number] RECD: 12/22/20 13:12 STATUS: BRINDA REQ #: [id number] CARLITO: 12/22/20 10:[address]: Saloni Roberts DEPT: [facility] Cytology RECD BY: Francesca Wiseman Tissues: 1 - CX/ENDOCX FOR PAP SMEARS Procedures: PAP THIN PREP/UVM Screening HPV DNA PROBE Comments: [id number]
== END 2020-12-22 13:01 | disposition home or self-care (01) ==
LOC: LBN 13:00
PROVIDERS: Visit Provider Nurse Practitioner Family
DX: Z12.4 Encounter for screening for malignant neoplasm of cervix (principal); Z11.51 Encounter for screening for human papillomavirus (HPV); R87.612 Low grade squamous intraepithelial lesion on cytologic smear of cervix (LGSIL); R87.820 Cervical low risk human papillomavirus (HPV) DNA test positive
CPT/HCPCS: 88142; 87624

== ENCOUNTER 2021-04-17 16:45 | Emergency (ER) | payer MEDICAID, SELFPAY ==
[2021-04-17 16:49] VITALS: BP 158/88; PULSE 82; RESP 16; TEMP 37.1; O2SAT 99
--- NOTE | 2021-04-17 17:13 | ED.GENADUL_ITS ---
Discharge Plan Disposition Patient Disposition: HOME Condition: Stable Discharge Details Clinical Impression: Viral syndrome Primary Care Provider: Katiana,Local ED Provider: Jewel Gutierrez Home Meds and New Rx's Prescriptions: Continued medroxyprogesterone [Depo-Provera] 150 mg/mL syringe 150 mg IM ONCE Qty: 1 0RF medroxyprogesterone [Depo-Provera] 150 mg/mL suspension 150 mg IM Q12W Qty: 1 3RF dpsqlehhtg-sbqjqzj-vztkisik 50-325-40 mg capsule 1 cap PO Q4H PRN MDD 1 PRN (Reason: migraine headache) Qty: 30 0RF ibuprofen 200 mg tablet 200 mg PO Q6H PRN0RF acetaminophen 325 mg capsule 325 mg PO ONCE PRN0RF naproxen sodium [Aleve] 220 mg tablet 220 mg PO DAILY PRN0RF Discharge Instructions Instructions: Viral Syndrome (ED) Additional Instructions: It would appear as though you have a quick acting viral syndrome, this very well could be the flu or Covid. Both your flu test and Covid test are pending and I will call you with the results. Rest, plenty of fluids to avoid dehydration, kawd-yqa-uhwryln medications as directed for symptomatic control. Please watch for new or worsening symptoms and return to the ER for any concerns. I do recommend contacting your primary care provider tomorrow to make them aware of your ER visit and need for outpatient reevaluation. Lastly, I do recommend quarantining until your Covid test has resulted negative, you will need to quarantine longer if it is positive. Medical Decision Making 41-year-old female presents with symptoms such as feeling hot and cold, nasal congestion, body aches, headache, that began suddenly at 11:30 AM today. She denies any chest pain or shortness of breath. She has been vaccinated against COVID but not against the flu. Denies recent sick contacts. Reports that she had Covid back in early January. Took a negative home Covid test today. Clinically she appears well, nontoxic, hemodynamically stable, afebrile, pulse in the eighties, O2 sat 99% on room air. Discussed options with patient. Plan is to obtain a Covid and flu test. I see no clear indication to obtain chest x- ray. Patient is comfortable with this plan. She was given the option of waiting in the ER for her test results or being called, she would like to be discharged home. We did discuss the importance of quarantining until her Covid test has resulted negative. Symptoms began suddenly around 1130 this morning, had been present for only about 5 hours, only discussed that she very well may develop new or evolving symptoms. Standard discharge and return precautions were provided This documentation was generated using [employer] dictation system, please disregard any oddities of phrase or misspellings. At approximately 1745 I contacted the patient to let her know that her flu, COVID, RSV were all negative. This documentation was generated using [employer] dictation system, please disregard any oddities of phrase or misspellings. Medical Records Medical records reviewed: Yes I reviewed the patient's medical records. Lab Data Lab results reviewed: Yes I reviewed the patient's lab results. Labs: Laboratory Tests Range/Units 04/17/21 17:25 COVID-19 Source Nasopharynx SARS-CoV-2 (PCR) (Negative) Negative Influenza Type A (PCR) (Negative) Negative Influenza Type B (PCR) (Negative) Negative RSV (PCR) (Negative) Negative HPI General Date/Time Provider Initiated Documentation: 04/17/21 16:45 . Limitations to Documentation: no limitations . Information obtained by: patient . HPI Narrative: This is a 41-year-old female, current smoker, past medical history of alcohol use, depression, reports that she is fully vaccinated for COVID, did not have the flu vaccine, did have Covid in early January, presenting to the ER for evaluation of symptoms today of runny nose, congestion, body aches, that began around 11:30 AM today. She states that she feels hot and cold but does not have a fever. She took dtpl-jzm-kiuntrk DayQuil with little relief. She denies recent sick contacts. She states that she has had a mild residual cough and lack of taste ever since she was diagnosed with COVID but feels as though though symptoms are unchanged today. She took at home Covid test today which was negative. Related Data Home Medications Medication Instructions Recorded Confirmed naproxen sodium 220 mg tablet 220 mg PO DAILY PRN tab 07/12/19 04/17/21 (Aleve) yzpvdrhfvw-orfkkfi-xacisegs 50 1 cap PO Q4H PRN PRN #30 cap MDD 1 09/29/20 04/17/21 mg-325 mg-40 mg capsule acetaminophen 325 mg capsule 325 mg PO ONCE PRN 11/14/20 04/17/21 ibuprofen 200 mg tablet 200 mg PO Q6H PRN 11/14/20 04/17/21 medroxyprogesterone 150 mg/mL 150 mg IM Q12W #1 ml 03/16/21 04/17/21 intramuscular suspension (Depo-Provera) Previous Rx's Medication Instructions Recorded wyrznbnohp-zbiovvj-cjwoguro 50 1 cap PO Q4H PRN PRN #30 cap MDD 1 09/29/20 mg-325 mg-40 mg capsule medroxyprogesterone 150 mg/mL 150 mg IM Q12W #1 ml 03/16/21 intramuscular suspension (Depo-Provera) Allergies Allergy/AdvReac Type Severity Reaction Status Date / Time erythromycin base Allergy Intermediate Vomitting, Verified 04/17/21 16:57 itchy chocolate flavor Allergy Mild Verified 04/17/21 16:57 Penicillins Allergy Mild Uncertain- Verified 04/17/21 16:57 reaction coconut flavor Allergy Anaphylaxsi Uncoded 04/17/21 16:57 s Dust AdvReac Uncoded 04/17/21 16:57 General Stated Complaint: RespSymp IMANI: 3 Review of Systems Constitutional Constitutional: Reports fatigue, Denies fever(s) and Reports headache(s) ENT Ears, Nose, Mouth, and Throat: Reports headache(s), Denies neck pain and Denies sore throat Cardiovascular Cardiovascular: Denies chest pain and Denies dyspnea Respiratory Respiratory: Denies cough and Denies dyspnea Gastrointestinal Gastrointestinal: Denies abdominal pain, Denies nausea and Denies vomiting Genitourinary Genitourinary: Denies dysuria Musculoskeletal Musculoskeletal: Reports myalgias and Denies neck pain Integumentary/Breasts Skin/Breast: Denies rash Neurologic Neurologic: Reports headache(s) Endocrine Endocrine: Reports fatigue PFSH All Active Problems Viral syndrome (Acute) No-show for appointment (Acute) Other problems related to housing and economic circumstances (Acute) Major depressive disorder, recurrent episode (Chronic) With Anxious Distress. Pt reported on 12/29/20 Dx PPD after 1st child was born who is now 21 y/o. Has struggled with Depression symptoms on and off, not currently on medication, hx of counseling and medication. Would like to establish with a counselor. Dissatisfied with doctor (Acute) Pt reports that she will not go back to her PCP at [facility]. Would like to establish w/ new provider but hesitant to do so. Referred to [facility]. Parenting stress (Acute) Internal derangement of left knee (Acute) Contusion of foot (Acute) Encounter for Depo-Provera contraception (Acute) Inversion sprain of left ankle (Acute 08/21/20) PAVAN II (cervical intraepithelial neoplasia II) (Acute 03/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 Menstrual migraine without status migrainosus, not intractable (Acute 06/19/16) well controlled w/ continuous Sprintec 09/18 initiation of DMPA for control Medical History History of alcohol use disorder Pt reported 12/29/20 that she is in remission but is worried about starting drinking again if stress level increases. History of depression Pt reported on 12/29/20 Dx PPD after 1st child was born who is now 21 y/o. Has struggled with Depression symptoms on and off, not currently on medication, hx of counseling and medication. Would like to establish with a counselor. Surgical History section X4 Social History Smoking/Tobacco Use Status: Current every day Tobacco Type: cigarettes Tobacco: How many years used: 20 Quit status: has quit before Counseling given: patient declined (Patient stated at this time she does not have time to worry about herself. ) Smoking risk assessment performed?: Yes Alcohol Intake: current Alcohol Intake frequency: holidays/special occasions only Drug use: Never Substance use type: does not use Counseling given: Yes (Encouraged patient to reach out to [facility] Current gender identity: female Do you feel safe at home: Yes Do you feel safe in your relationship?: Yes Female Reproductive History Menstrual Age of Menarche: 15 control method: permanent sterilization History History 4 Para 4 Hx # Term Pregnancies Multiple births Hx # Pregnancies Ectopic pregnancies AB induced Hx Number of Living Children AB spontaneous Exam Const General: cooperative, healthy appearing, comfortable and no acute distress Orientation: alert, awake and oriented x3 HENMT Head: normal to inspection, normocephalic and atraumatic Ears: external ears normal, TM's normal bilaterally and EAC's normal General nose exam: nasal discharge clear Mouth: moist mucous membranes Throat: posterior oropharynx normal Eyes General: appearance normal, both eyes and all related structures Conjunctivae: conjunctivae normal Neck Neck: normal visual inspection, full ROM, no lymphadenopathy, no meningeal signs, trachea midline, supple and nontender Resp Effort & Inspection: normal respiratory effort and able to speak in complete sentences Auscultation: not clear to auscultation bilaterally Cardio Rate: regular rate Rhythm: regular rhythm GI Palpation: soft and nontender Skin General skin exam: no rashes or lesions noted Neuro General: patient alert, patient awake, moves all extremities and no focal motor deficits Cognition: normal cognition Speech: speech normal Gait: normal gait Sensory Exam: no sensory deficits noted Psych Appearance: grossly normal Mental Status: mental status grossly normal Course Vital Signs Vital signs: Vital Signs Temperature 37.1 C 04/17/21 16:49 Pulse 82 04/17/21 16:49 Respiratory Rate 16 04/17/21 16:49 Blood Pressure 158/88 H 04/17/21 16:49 Pulse Oximetry 99 04/17/21 16:49 Temperature 37.1 C 04/17/21 16:49 Temperature Source Oral 04/17/21 16:49 Pulse 82 04/17/21 16:49 Respiratory Rate 16 04/17/21 16:49 Respiratory Effort Non-Labored 04/17/21 16:58 Respiratory Depth Normal 04/17/21 16:58 Blood Pressure 158/88 H 04/17/21 16:49 Blood Pressure Position Sitting 04/17/21 16:49 Pulse Oximetry 99 04/17/21 16:49 Oxygen Delivery Method Room Air 04/17/21 16:49 Oxygen Flow Rate 0 04/17/21 16:49 Pain Level 3 04/17/21 16:49 PAWSS Have you Been Recently Intoxicated or Drunk Within the Last 30 days?: No Have you Ever Experienced Previous Episodes of Alcohol Withdrawal?: No Have you ever Experienced Withdrawal Seizures?: No Have you ever Experienced Delirium Tremens(DT)s?: No Have you ever undergone Alcohol Rehabilitation Treatment (i.e, inpt ot outpatient treatment programs)?: No Have you ever Experienced Blackouts?: No Have you ever Combined Alcohol with other Downers within the last 90 days?: No Have you ever Combined Alcohol with any other Substance of Abuse during the last 90 days?: No Positive Blood Alcohol level on Presentation? [PCS.BAL]: No Evidence of Increased Autonomic Activity (i.e. HR>120, tremor, sweating, agitation, nausea)?: No Result: 0
[2021-04-17 17:25] LABS: Source Nasopharynx
[2021-04-17 18:05] LABS: COVID-19 PCR Negative (Negative); Influenza A PCR Negative (Negative); Influenza B PCR Negative (Negative); RSV PCR Negative (Negative)
== END 2021-04-17 17:35 | disposition home or self-care (01) ==
PROVIDERS: Emergency Provider Physician Assistant
DX: B34.9 Viral infection, unspecified (principal); Z20.822 Contact with and (suspected) exposure to COVID-19
CPT/HCPCS: 87637; 99282

== ENCOUNTER 2022-03-14 04:04 | Outpatient (CLI) | payer MEDICAID, SELFPAY ==
[2022-03-14 10:51] LABS: Abs Immature Grans 0.04 10^3/uL (0.0-0.06); Absolute Basophil Count 0.04 10^3/uL (0.0-0.2); Absolute Eosinophil Count 0.06 10^3/uL (0.0-0.7); Absolute Lymphocyte Count 1.85 10^3/uL (1.2-3.4); Absolute Monocyte Count 0.61 10^3/uL (0.1-0.8); Absolute Neutrophil Count 5.67 10^3/uL (1.2-6.7); Basophils % 0.5; Eosinophils % 0.7; HCT 44.7 % (36.0-46.0); Immature Grans % 0.5; Lymphocytes % 22.4; MCH 27.3 pg (27.0-33.0); MCHC 33.6 % (32.0-36.0); MCV 81 fL (80-95); MPV 10.2 fL (8.0-11.0); Monocytes % 7.4; Neutrophils % 68.5; Platelet Count 208 10^3/uL (130-400); RBC 5.49 10^6/uL (3.93-5.22); RDW 12.3 % (11.7-14.6); RDW-SD 36.8 fL; WBC 8.27 10^3/uL (4.4-10.8)
[2022-03-14 12:13] LABS: ALT 27 U/L (14-59); AST 21 U/L (15-37); Alkaline Phosphatase 82 U/L (46-116); BUN 17 mg/dL (7-18); Bilirubin, Total 0.3 mg/dL (0.2-1.0); CREATININE 0.8 mg/dL (0.55-1.02); Calcium 8.9 mg/dL (8.5-10.1); Calculated LDL 140 mg/dL (<100); Chloride 102 mmol/L (98-107); Cholesterol 188 mg/dL (<200); Estimated GFR 96.06 (mL/min/1.73m2); Glucose 111 mg/dL (74-106); HDL Cholesterol 32 mg/dL (40-60); Potassium 3.9 mmol/L (3.5-5.1); Sodium 138 mmol/L (136-145); TSH (W/Ref FT4) 1.45 uIU/mL (0.36-3.74); Total Protein 8.1 g/dL (6.4-8.2); Triglyceride 82 mg/dL (<150)
[2022-03-15 11:00] LABS: Hepatitis C Ab w Rflx HCV PCR Negative (Negative)
== END 2022-03-14 04:05 | disposition home or self-care (01) ==
LOC: LBO 04:04
PROVIDERS: PCP Nurse Practitioner Family; Visit Provider Nurse Practitioner Family
DX: F10.20 Alcohol dependence, uncomplicated (principal); F41.8 Other specified anxiety disorders; E78.5 Hyperlipidemia, unspecified; R73.09 Other abnormal glucose
CPT/HCPCS: 36415; 80053; 80061; 86803; 84443; 85025

== ENCOUNTER 2022-05-07 15:28 | Emergency (ER) | payer MEDICAID, SELFPAY ==
[2022-05-07 15:33] VITALS: BP 159/81; PULSE 94; RESP 18; TEMP 36.8; O2SAT 97
--- NOTE | 2022-05-07 15:45 | DI.RAD_ITS ---
Exam(s) XR KNEE RT 3V AP,LAT,DAVID EXAM: XR KNEE RT 3V AP,LAT,DAVID CLINICAL HISTORY: Fall, Knee pain. TECHNIQUE: 2D digital imaging was performed. COMPARISON: CR XR KNEE LT 3V AP,LAT,DAVID from 11/14/2020 FINDINGS: 3 views There is anterior soft tissue swelling. No fractures. Small joint effusion noted. No joint space n arrowing. No degenerative changes. No osseous lesions. Bone density normal. IMPRESSION: No acute osseous findings. Small joint effusion. DATA REPOSITORY: RADIATION DOSE DELIVERED:
--- NOTE | 2022-05-07 15:47 | ED.GENADUL_ITS ---
Discharge Plan Disposition Patient Disposition: Home Discharge Details Clinical Impression: Effusion of right knee joint, Right knee sprain Primary Care Provider: Tiana Stanley ED Provider: Rachel Estes Home Meds and New Rx's Prescriptions: Continued medroxyprogesterone [Depo-Provera] 150 mg/mL suspension 150 mg IM Q12W Qty: 1 3RF meloxicam 7.5 mg tablet 7.5 - 15 mg PO DAILY PRN (Reason: pain) Qty: 30 0RF acetaminophen 325 mg capsule 325 mg PO ONCE PRN xnclmksqmz-niwwree-zdmqmtld 50-325-40 mg capsule 1 cap PO Q4H PRN MDD 1 PRN (Reason: migraine headache) Qty: 10 2RF Gardasil 9 (PF) 0.5 mL suspension 0.5 ml IM ONCE Qty: 0.5 0RF Rx Instructions: as a single dose sertraline 100 mg tablet 100 mg PO DAILY Qty: 45 0RF naproxen sodium [Aleve] 220 mg tablet 220 mg PO DAILY PRN Discharge Instructions Instructions: Knee Sprain (ED) Additional Instructions: X-ray shows no acute fracture, small amount of fluid noted in the knee joint space. I do suspect a sprain. Please wear the hinged knee brace and use the crutches as needed for comfort. Toe-touch weightbearing, advance as tolerated. Please take Tylenol or Ibuprofen with food every 4-6 hours as needed for pain and swelling. Rest, ice, compression, elevation when sitting or lying down. If you have continued problems please follow-up with orthopedics within the next 2 to 3 weeks. Referrals: Moustapha Queen MD [ [facility] STAFF PHYSICIAN] - 2 weeks Discharge Data Discharge Date/Time-TO BE ENTERED AT DEPARTURE: 05/07/22 17:08 Medical Decision Making 42-year-old female presents to the ER with chief complaint of right knee pain status post a slip and fall yesterday. Patient states she slipped on the ice and her right knee and leg went behind her left leg went out for a number. She denies hitting her head and denies any neck or back pain. She is complaining of right knee pain and states that she heard a pop. She has a limping gait upon arrival. No obvious deformity some mild swelling noted. She does have some medial joint tenderness with palpation. Distal CMS is intact. Right knee x-ray ordered and 600 mg ibuprofen. Xray shows small joint effusion, no acute fracture, Will place in hinged knee brace and Give crutches with home care and follow up. This text was generated using [employer] system, please disregard any oddities of phrase or misspellings. Imaging Data Radiologic Study: Imaging: X-Ray Radiologist's impression: FINDINGS: 3 views There is anterior soft tissue swelling.? No fractures.? Small joint effusion noted.? No joint space narrowing.? No degenerative changes.? No osseous lesions.? Bone density normal. IMPRESSION: No acute osseous findings.? Small joint effusion. HPI General Mode of arrival: ambulatory . Date/Time Provider Initiated Documentation: 05/07/22 15:45 . Limitations to Documentation: no limitations . Information obtained by: patient, RN notes reviewed and old records reviewed . HPI Narrative: 42-year-old female presents to the ER with chief complaint of right knee pain status post a slip and fall yesterday. Patient states she slipped on the ice and her right knee and leg went behind her left leg went out for a number. She denies hitting her head and denies any neck or back pain. She is complaining of right knee pain and states that she heard a pop. She has a limping gait upon arrival. No obvious deformity some mild swelling noted. She does have some medial joint tenderness with palpation. Distal CMS is intact. She does have a past medical history of obesity, hyperlipidemia, tobacco use disorder, anxiety depression. She last took Tylenol at noon. Related Data Home Medications Medication Instructions Recorded Confirmed naproxen sodium 220 mg tablet 220 mg PO DAILY PRN 07/12/19 05/07/22 (Aleve) acetaminophen 325 mg capsule 325 mg PO ONCE PRN 11/14/20 05/07/22 medroxyprogesterone 150 mg/mL 150 mg IM Q12W #1 mL 03/16/21 05/07/22 intramuscular suspension (Depo-Provera) fgbcfuezwg-yeerxql-zqdemekc 50 1 cap PO Q4H PRN PRN migraine 11/30/21 05/07/22 mg-325 mg-40 mg capsule headache #10 caps human papillomav vac,9-michaelle(PF) 0.5 0.5 ml IM ONCE #0.5 mL 02/22/22 03/22/22 mL IM suspension (Gardasil 9 (PF)) meloxicam 7.5 mg tablet 7.5 - 15 mg PO DAILY PRN pain #30 04/18/22 05/07/22 tabs sertraline 100 mg tablet 100 mg PO DAILY #45 tab-caps 05/03/22 05/07/22 Previous Rx's Medication Instructions Recorded medroxyprogesterone 150 mg/mL 150 mg IM Q12W #1 mL 03/16/21 intramuscular suspension (Depo-Provera) owoswivfct-svpfjuz-drlkkwql 50 1 cap PO Q4H PRN PRN migraine 11/30/21 mg-325 mg-40 mg capsule headache #10 caps human papillomav vac,9-michaelle(PF) 0.5 0.5 ml IM ONCE #0.5 mL 02/22/22 mL IM suspension (Gardasil 9 (PF)) meloxicam 7.5 mg tablet 7.5 - 15 mg PO DAILY PRN pain #30 04/18/22 tabs sertraline 100 mg tablet 100 mg PO DAILY #45 tab-caps 05/03/22 Allergies Allergy/AdvReac Type Severity Reaction Status Date / Time erythromycin base Allergy Intermediate Vomitting, Verified 05/07/22 15:40 itchy chocolate flavor Allergy Mild Verified 05/07/22 15:40 Penicillins Allergy Mild Uncertain- Verified 05/07/22 15:40 reaction escitalopram AdvReac Other (See Verified 05/07/22 15:40 Comment) coconut flavor Allergy Anaphylaxsi Uncoded 05/07/22 15:40 s Dust AdvReac Uncoded 05/07/22 15:40 General Stated Complaint: Orthopedic IMANI: 4 Review of Systems All systems reviewed & are unremarkable except as noted in HPI and below Musculoskeletal Musculoskeletal: Reports as per HPI and Reports arthralgias PFSH All Active Problems (Updated 05/07/22 @ 16:50 by Rachel Estes NP) Effusion of right knee joint (Acute) Right knee sprain (Acute) Menstrual migraine without status migrainosus, not intractable (Chronic 06/19/16) well controlled w/ continuous Sprintec; 09/18 initiation of DMPA for control Encounter for Depo-Provera contraception (Acute) Major depressive disorder, recurrent episode (Chronic) LGSIL on Pap smear of cervix (Acute) Alcohol dependence, binge pattern (Acute) Bilateral carpal tunnel syndrome (Acute) Tobacco use disorder (Acute) Obesity (Chronic) Hyperlipidemia, unspecified (Acute) IFG (impaired fasting glucose) (Acute) Medical History 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 History of depression Pt reported on 12/29/20 Dx PPD after 1st child was born who is now 21 y/o. Has struggled with Depression symptoms on and off, not currently on medication, hx of counseling and medication. Would like to establish with a counselor. Internal derangement of left knee Surgical History section X4 Status post left knee surgery (~2014) Cyst removal; Dr. Lindquist Family History Maternal Grandfather Substance use disorder Father Non-Hodgkin lymphoma Depression Son Depression Daughter Depression Heart disease Social History Smoking/Tobacco Use Status: Current every day Tobacco Type: cigarettes Tobacco: How many years used: 20 Quit status: considering quitting (Information given on 802 quits program) Counseling given: patient declined (Patient stated at this time she does not have time to worry about herself. ) Smoking risk assessment performed?: Yes Alcohol Intake: current Alcohol Intake frequency: holidays/special occasions only Alcohol type: hard liquor Drug use: Never Substance use type: does not use Adopted: No Caregiver/Support person: No Foster care: Yes Household members: spouse and children Housing: house Number of Children: 4 Education Level: high school Do you need help understanding health information?: Never current occupation: Residential Care for [employer] Pets and animals: Yes Pets and animals: dog(s) and other Details: didier Sexually active: Yes Do you think of yourself as: straight/heterosexual Current gender identity: female Other: from man who was father to her 4 children; remarried What is your relationship status?: How often do you talk on the phone with friends or family?: three or more times per week How often do you get together with friends or relatives?: three or more times per week Do you belong to any clubs or organized social groups?: yes Panel score (0-1 are the most socially isolated patients): 3 Brynn/Zoroastrianism: None Special brynn needs: No Seatbelt use: sometimes Helmet use: Yes Helmet use: always Drive intox or ride w/intox garbage collector driver: No Do you feel safe at home: Yes Do you feel safe in your relationship?: Yes Female Reproductive History Menstrual Age of Menarche: 15 control method: permanent sterilization History History 4 Para 4 Hx # Term Pregnancies Multiple births Hx # Pregnancies Ectopic pregnancies AB induced Hx Number of Living Children AB spontaneous Exam Back/Spine/Pelvis Back: no CVA tenderness Cervical Spine: normal cervical lordosis and cervical ROM normal Thoracic/Lumbar Spine: thoracic and lumbar spine normal to inspection Pelvis: no pain with anterior-posterior compression Extrem Right lower extremity: normal capillary refill and knee Details: normal to inspection, tenderness Location: of the medial joint line and swelling; no deformity and no unusual warmth Course Vital Signs Vital signs: Vital Signs Temperature 36.8 C 05/07/22 15:33 Pulse 94 H 05/07/22 15:33 Respiratory Rate 18 05/07/22 15:33 Blood Pressure 159/81 H 05/07/22 15:33 Pulse Oximetry 97 05/07/22 15:33 Temperature 36.8 C 05/07/22 15:33 Temperature Source Oral 05/07/22 15:33 Pulse 94 H 05/07/22 15:33 Respiratory Rate 18 05/07/22 15:33 Respiratory Effort Normal, Non-Labored 05/07/22 15:38 Blood Pressure 159/81 H 05/07/22 15:33 Blood Pressure Position Sitting 05/07/22 15:33 Pulse Oximetry 97 05/07/22 15:33 Oxygen Delivery Method Room Air 05/07/22 15:33 Oxygen Flow Rate 0 05/07/22 15:33 Pain Level 10 05/07/22 15:33 PAWSS Have you Been Recently Intoxicated or Drunk Within the Last 30 days?: Yes Have you Ever Experienced Previous Episodes of Alcohol Withdrawal?: No Have you ever Experienced Withdrawal Seizures?: No Have you ever Experienced Delirium Tremens(DT)s?: No Have you ever undergone Alcohol Rehabilitation Treatment (i.e, inpt ot ou tpatient treatment programs)?: No Have you ever Experienced Blackouts?: Yes Have you ever Combined Alcohol with other Downers within the last 90 days?: No Have you ever Combined Alcohol with any other Substance of Abuse during the last 90 days?: No Positive Blood Alcohol level on Presentation? [PCS.BAL]: No Evidence of Increased Autonomic Activity (i.e. HR>120, tremor, sweating, agitation, nausea)?: No Result: 2
[2022-05-07] MEDS: Ibuprofen 600 MG TAB PO (15:59)
== END 2022-05-07 17:08 | disposition home or self-care (01) ==
PROVIDERS: Emergency Provider Registered Nurse Emergency; PCP Nurse Practitioner Family
DX: M25.461 Effusion, right knee (principal); S83.8X1A Sprain of other specified parts of right knee, initial encounter; W00.0XXA Fall on same level due to ice and snow, initial encounter
CPT/HCPCS: 29505; 73562; 99283

== ENCOUNTER 2022-05-30 11:35 | Outpatient (CLI) | payer MEDICAID, SELFPAY ==
--- NOTE | 2022-05-30 07:45 | DI.MRI_ITS ---
Exam(s) MR LOWER JOINT RT WO EXAM: MR LOWER JOINT RT WO CLINICAL HISTORY: PAIN,internal derangement rt knee, m23.91. TECHNIQUE: Multiplanar multisequence MRI was performed. COMPARISON: CR XR KNEE RT 3V AP,LAT,DAVID from 05/07/2022 FINDINGS: BONES: There is no fracture or contusion pattern. Red marrow reconversion, frequently seen with obe sity. JOINTS: A small joint effusion is present. Articular cartilage: Patellofemoral joint: Mild cartilage irregularity. Focal defect lateral patella r facet extending down to and involving underlying bone. Medial femoral tibial joint: Articular cartilage is unremarkable. Lateral femoral tibial joint: Articular cartilage is unremarkable. TENDONS: Extensor mechanism: Unremarkable. Medial retinaculum: Unremarkable. Lateral retinaculum: Unremarkable. Popliteus: Unremarkable. MUSCLES: Unremarkable. MENISCI: The medial meniscus is unremarkable. The lateral meniscus is unremarkable. SOFT TISSUES: Unremarkable. LIGAMENTS: Anterior Cruciate: Unremarkable. Posterior Cruciate: Unremarkable. Medial Collateral:Mild surrounding edema. No focal tear. Lateral Collateral: Unremarkable. OTHER: IMPRESSION: Focal cartilage defect lateral patellar facet extending down to bone. No displaced fragment. Question of medial collateral ligament sprain. DATA REPOSITORY:
== END 2022-05-30 11:55 ==
LOC: DI 11:35
PROVIDERS: PCP Nurse Practitioner Family; Visit Provider Student in an Organized Health Care Education/Training Program
DX: M25.561 Pain in right knee; M23.8X1 Other internal derangements of right knee; M25.461 Effusion, right knee; M94.8X6 Other specified disorders of cartilage, lower leg
CPT/HCPCS: 73721

== ENCOUNTER 2022-06-03 10:52 | Outpatient (REF) | payer MEDICAID, SELFPAY ==
--- NOTE | 2022-06-03 10:20 | PAPFT_PTH ---
PATIENT: Marie Lindsay LOC: [facility] U#:[id number] AGE/SX: 42/F ROOM: RE06/03/[address]: Peggy Figueroa NP : 1980 BED: DIS: 06/03/2022 SPEC #: [id number] RECD: 06/03/22 13:16 STATUS: BRINDA REWaldemar #: [id number] CARLITO: 06/03/22 10:[address]: Henry DEL CASTILLO,Peggy DEPT: [facility] Cytology RECD BY: Francesca Wiseman ENTERED: 06/03/22 13:16 SP TYPE: PAPFT OTHR DR: Tiana Stanley APRN Tissues: 1 - CX/ENDOCX FOR PAP SMEARS Procedures: PAP THIN PREP/UVM Screening HPV DNA PROBE Comments: [id number]
== END 2022-06-03 10:53 | disposition home or self-care (01) ==
LOC: LBN 10:52
PROVIDERS: PCP Nurse Practitioner Family; Visit Provider Nurse Practitioner Women's Health
DX: Z12.4 Encounter for screening for malignant neoplasm of cervix (principal); Z11.51 Encounter for screening for human papillomavirus (HPV); R87.810 Cervical high risk human papillomavirus (HPV) DNA test positive; N72 Inflammatory disease of cervix uteri; Z87.410 Personal history of cervical dysplasia
CPT/HCPCS: 88142; 87624

== ENCOUNTER 2022-07-02 12:44 | Day surgery (SDC) | payer MEDICAID, SELFPAY ==
[2022-07-02 13:34] VITALS: BP 135/102; PULSE 97; RESP 20; TEMP 36.4; O2SAT 98
[2022-07-02] MEDS: Lactated Ringers 1,000 ML 80 ML IV (13:45)
--- NOTE | 2022-07-02 14:31 | W.ANESPRE ---
General Info Date of Service Date Performed: 07/02/22 Height: 5 ft 2 in Weight: 113.4 kg Body Mass Index (BMI): 45.7 Surgical Procedure: Operation Date: 07/02/22 15:25 Proposed Procedure Side Surgeon p Wrist ECTR Right Arsenio Potts MD Meds Allergies and Home Medications Allergies Allergy/AdvReac Type Severity Reaction Status Date / Time erythromycin base Allergy Intermediate Vomitting, Verified 07/01/22 12:21 itchy chocolate flavor Allergy Mild Hives Verified 07/01/22 14:26 Penicillins Allergy Mild Uncertain- Verified 07/01/22 12:21 reaction escitalopram AdvReac Palpitations, Verified 07/01/22 14:26 chest tightness coconut flavor Allergy Anaphylaxsi Uncoded 07/01/22 12:21 s Dust AdvReac itchy Uncoded 07/01/22 14:26 watery eyes Home Medication Medication Instructions Recorded acetaminophen 325 mg capsule 325 mg PO ONCE PRN 11/14/20 btlkvflxse-fwpygkc-qjgcpbbi 50 1 cap PO Q4H PRN PRN migraine 11/30/21 mg-325 mg-40 mg capsule headache #10 caps cyclobenzaprine 10 mg tablet 10 mg PO TID PRN muscle spasm #30 05/16/22 tab-caps medroxyprogesterone 150 mg/mL 150 mg IM Q12W #1 mL 05/23/22 intramuscular suspension (Depo-Provera) meloxicam 15 mg tablet 15 mg PO DAILY #60 tabs 06/19/22 sertraline 100 mg tablet 100 mg PO HS 07/01/22 Current Visit Medications: Current Medications Generic Name Dose Route Start Last Admin Trade Name Freq PRN Reason Stop Dose Admin Ringer's Solution 1,000 mls @ 80 mls/hr 07/02/22 06:00 07/02/22 13:45 IV 07/31/22 23:59 80 mls/hr INFUSION CHEVY Administration Cefazolin Sodium/Dextrose 2 gm in 50 mls @ 100 mls/hr 07/02/22 06:00 Ancef Duplex IVPB 07/02/22 16:00 PREOP CHEVY IV Miscellaneous Supplies 1 each 07/02/22 06:00 Iv Access IV 07/31/22 23:59 DIRECTED CHEVY Sodium Chloride 0 ml 07/02/22 06:00 Normal Saline Flush 10 Ml Syr IV 07/31/22 23:59 PRN PRN Sodium Chloride 0 ml 07/02/22 06:00 Normal Saline 10 Ml Vial IJ 07/31/22 23:59 DIRECTED PRN Sterile Water 0 ml 07/02/22 06:00 Water,Injection,Sterile 10 Ml Vial IJ 07/31/22 23:59 DIRECTED PRN PFSH Active Problems Active Problems: Problem Status Onset Code MCL sprain of right knee S83.411A Internal derangement of right knee 05/06/22 M23.91 Menstrual migraine without status migrainosus, not intractable 06/19/16 G43.829 Encounter for Depo-Provera contraception Z30.42 Major depressive disorder, recurrent episode F33.9 LGSIL on Pap smear of cervix R87.612 Alcohol dependence, binge pattern F10.20 Bilateral carpal tunnel syndrome G56.03 Tobacco use disorder F17.200 Obesity E66.9 Hyperlipidemia, unspecified E78.5 IFG (impaired fasting glucose) R73.01 Medical History Medical History 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 History of depression Pt reported on 12/29/20 Dx PPD after 1st child was born who is now 21 y/o. Has struggled with Depression symptoms on and off, not currently on medication, hx of counseling and medication. Would like to establish with a counselor. Internal derangement of left knee Surgical History Surgical History section X4 Status post left knee surgery (~2014) Cyst removal; Dr. Lindquist Tobacco Smoking/Tobacco Use Status: Current every day Tobacco Type: cigarettes Counseling given: patient declined (Patient stated at this time she does not have time to worry about herself. ) Alcohol Alcohol Intake: current Alcohol intake frequency: holidays/special occasions only Alcohol type: hard liquor Substance Use Substance use: Never Substance use type: does not use Details: smoked cigarettes today Prental History History 4 Para 4 Hx # Term Pregnancies Multiple births Hx # Pregnancies Ectopic pregnancies AB induced Hx Number of Living Children AB spontaneous Vital Signs and Lab Results Vital Signs Most Recent Vital Signs in EMR: Most Recent Vital Signs Temp Pulse Resp BP Pulse Ox 36.4 C L 97 H 20 135/102 H 98 07/02/22 13:34 07/02/22 13:34 07/02/22 13:34 07/02/22 13:34 07/02/22 13:34 Lab Results Blood Type / Crossmatch: No Data to Display Complete Blood Count: No Data to Display Complete Metabolic Panel: No Data to Display Liver Function Panel: No Data to Display Coagulation Panel: No Data to Display Cardiac Panel: No Data to Display Arterial Blood Gas: No Data to Display Venous Blood Gas: No Data to Display Pancreas Panel: No Data to Display Thyroid Panel: No Data to Display Infectious Disease: No Data to Display Blood Cultures: No Data to Display Toxicology Panel: No Data to Display Panel: No Data to Display Anesthesia Assessment and Plan Anesthesia History Personal History: No History of Anesthesia Complications Family History: No Family History of Anesthesia Complications Exercise Tolerance Exercise Tolerance: Metabolic Equivalents>4 Pertinent Negatives Pertinent Negatives: No Symptoms of GERD, No Major Cardiovascular Symptoms or Complaints, No Major Pulmonary Symptoms or Complaints and No History of CVA/TIA Cardiac & Pulmonary Exam Cardiac Exam: Normal S1/S2 Heart Sounds Pulmonary Exam: Clear Bilateral Breath Sounds Implantable Cardiac Device Does patient have a Pacemaker or an ICD?: No Airway Exam Known Difficult Airway: No Mallampati Class: 3 Mouth Opening: Normal (> 3cm) Thyromental Distance: Greater than 3 cm Neck Range of Motion: Full ROM Neck Circumference: Thick Teeth Condition: Normal Dentition (one tooth upper right broken, not loose) ASA Classification ASA Score: ASA 3 Emergency Case?: No NPO Status NPO Status: NPO Clears >2 hours, Solids >8 hours Status Status: Pt. refuses testing, she was counseled on anesthesia risks Anesthesia Plan Resuscitation Status: Full Code Anesthesia Technique: General Anesthesia Airway Planned: Natural Airway Monitors Used: Standard Monitors
[2022-07-02 14:36] VITALS: BMI 45.7
--- NOTE | 2022-07-02 15:53 | W.PREOPHP ---
Assessment and Plan Assessment and plan (1) Bilateral carpal tunnel syndrome: Status: Acute Assessment and plan: Marie is a 42-year-old female with bilateral carpal tunnel syndrome. She is here today for right endoscopic carpal tunnel release followed by the left side in 1 week. I reviewed the surgery with her. I discussed the risk to include bleeding, infection, pain, stiffness, residual numbness, return of symptoms, scarring or inflammation around the nerve, palmar hand pain. Despite these risks, she elects to proceed. History of Present Illness History of Present Illness Chief Complaint: Bilateral Carpal Tunnel Syndrome Narrative: Marie is a 42-year-old female who has bilateral carpal tunnel syndrome. She is here today for her right carpal tunnel to be followed in 1 week with the left side. Please see the previous office note for complete detailed history. She has no active medical issues that are currently ongoing. She denies any chest pain or shortness of breath. She has no recent illness or sick contacts. Review of Systems All systems reviewed & are unremarkable except as noted in HPI and below PFSH All Active Problems MCL sprain of right knee (Acute) Internal derangement of right knee (Acute 05/06/22) Menstrual migraine without status migrainosus, not intractable (Chronic 06/19/16) well controlled w/ continuous Sprintec; 09/18 initiation of DMPA for control Encounter for Depo-Provera contraception (Acute) Major depressive disorder, recurrent episode (Chronic) LGSIL on Pap smear of cervix (Acute) Alcohol dependence, binge pattern (Acute) Bilateral carpal tunnel syndrome (Acute) Tobacco use disorder (Acute) Obesity (Chronic) Hyperlipidemia, unspecified (Acute) IFG (impaired fasting glucose) (Acute) Medical History 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 History of depression Pt reported on 12/29/20 Dx PPD after 1st child was born who is now 21 y/o. Has struggled with Depression symptoms on and off, not currently on medication, hx of counseling and medication. Would like to establish with a counselor. Internal derangement of left knee Surgical History section X4 Status post left knee surgery (~2014) Cyst removal; Dr. Lindquist Family History Maternal Grandfather Substance use disorder Father Non-Hodgkin lymphoma Depression Son Depression Daughter Depression Heart disease Social History Smoking/Tobacco Use Status: Current every day Tobacco Type: cigarettes Tobacco: How many years used: 20 Quit status: considering quitting (Information given on [employer] quits program) Counseling given: patient declined (Patient stated at this time she does not have time to worry about herself. ) Smoking risk assessment performed?: Yes Alcohol Intake: current Alcohol Intake frequency: holidays/special occasions only Alcohol type: hard liquor Drug use: Never Substance use type: does not use Details: smoked cigarettes today Adopted: No Caregiver/Support person: No Foster care: Yes Household members: spouse and children Housing: house Number of Children: 4 Education Level: high school Do you need help understanding health information?: Never current occupation: Residential Care for [employer] Pets and animals: Yes Pets and animals: dog(s) and other Details: didier Sexually active: Yes Do you think of yourself as: straight/heterosexual Current gender identity: female Other: from man who was father to her 4 children; remarried What is your relationship status?: How often do you talk on the phone with friends or family?: three or more times per week How often do you get together with friends or relatives?: three or more times per week Do you belong to any clubs or organized social groups?: yes Panel score (0-1 are the most socially isolated patients): 3 Brynn/Rastafarian: None Special brynn needs: No Seatbelt use: sometimes Helmet use: Yes Helmet use: always Drive intox or ride w/intox hook up driver: No Do you feel safe at home: Yes Do you feel safe in your relationship?: Yes Female Reproductive History Menstrual Age of Menarche: 15 control method: permanent sterilization History History 4 Para 4 Hx # Term Pregnancies Multiple births Hx # Pregnancies Ectopic pregnancies AB induced Hx Number of Living Children AB spontaneous Meds Allergies and Home Medications Allergies Allergy/AdvReac Type Severity Reaction Status Date / Time erythromycin base Allergy Intermediate Vomitting, Verified 07/01/22 12:21 itchy chocolate flavor Allergy Mild Hives Verified 07/01/22 14:26 Penicillins Allergy Mild Uncertain- Verified 07/01/22 12:21 reaction escitalopram AdvReac Palpitations, Verified 07/01/22 14:26 chest tightness coconut flavor Allergy Anaphylaxsi Uncoded 07/01/22 12:21 s Dust AdvReac itchy Uncoded 07/01/22 14:26 watery eyes Home Medications Medication Instructions Recorded Confirmed Type acetaminophen 325 mg capsule 325 mg PO ONCE PRN 11/14/20 07/02/22 History eqmlhyoijy-ozdsupi-nhqegxin 50 1 cap PO Q4H PRN PRN migraine 11/30/21 07/02/22 Rx mg-325 mg-40 mg capsule headache #10 caps cyclobenzaprine 10 mg tablet 10 mg PO TID PRN muscle spasm #30 05/16/22 07/02/22 Rx tab-caps medroxyprogesterone 150 mg/mL 150 mg IM Q12W #1 mL 05/23/22 07/02/22 Rx intramuscular suspension (Depo-Provera) meloxicam 15 mg tablet 15 mg PO DAILY #60 tabs 06/19/22 07/02/22 Rx sertraline 100 mg tablet 100 mg PO HS 07/01/22 07/02/22 History Exam Resp Effort & Inspection: normal respiratory effort Auscultation: clear to auscultation bilaterally Cardio Rate: regular rate Rhythm: regular rhythm Results Last Vital Signs Temp 36.4 C L 07/02/22 13:34 Pulse 97 H 07/02/22 13:34 Resp 20 07/02/22 13:34 BP 135/102 H 07/02/22 13:34 Pulse Ox 98 07/02/22 13:34
--- NOTE | 2022-07-02 16:02 | PDOC.DSDIS_ITS ---
Date of service: 07/02/22 Time of Service: 16:02 Discharge Plan Disposition Patient Disposition: Home Condition: Good Discharge Details Attending Provider: Arsenio Potts Primary Care Provider: Tiana Stanley Home Meds and New Rx's Prescriptions: New hydrocodone-acetaminophen 5-325 mg tablet 1 tab PO Q6H PRN (Reason: pain) Qty: 12 0RF acetaminophen 500 mg tablet 500 mg PO Q6H PRN PRN (Reason: pain) Qty: 40 3RF ibuprofen 600 mg tablet 600 mg PO TID PRN (Reason: pain) Qty: 90 3RF Continued zlwkjznyfq-jxclpmd-llhkljen 50-325-40 mg capsule 1 cap PO Q4H PRN MDD 1 PRN (Reason: migraine headache) Qty: 10 2RF meloxicam 15 mg tablet 15 mg PO DAILY Qty: 60 0RF cyclobenzaprine 10 mg tablet 10 mg PO TID PRN (Reason: muscle spasm) Qty: 30 0RF medroxyprogesterone [Depo-Provera] 150 mg/mL suspension 150 mg IM Q12W Qty: 1 3RF sertraline 100 mg tablet 100 mg PO HS Discontinued acetaminophen 325 mg capsule 325 mg PO ONCE PRN Discharge Instructions Stand Alone Forms: Delroy Barrios Tunnel Release Referrals: Arsenio Potts MD [ [facility] STAFF PHYSICIAN] - Activity:: Elevate Remove Dressings/Wound Care:: 48 hours Shower/Bathe:: 48 hours Diet:: As Tolerated Discharge Orders Discharge Orders: Discharge Order (Routine); Ordered 07/02/22 Ordered By: Arsenio Potts DS: Diagnosis Discharge Diagnosis (1) Bilateral carpal tunnel syndrome: Status: Acute
[2022-07-02] MEDS: ceFAZolin 2 GM/50 ML BAG IVPB (16:08)
[2022-07-02] MEDS: Lidocaine 1% Pres-Free W/EPI 1/200,000 10 ML VIAL (16:13)
[2022-07-02 16:29] VITALS: BP 108/75; PULSE 84; RESP 16; TEMP 36.5; O2SAT 99
--- NOTE | 2022-07-02 16:40 | W.ANESPOSTOP ---
Postoperative Evaluation Date, Time and Location Date Performed: 07/02/22 Time Performed: 16:40 Patient Location: Day Surgery Unit Vital Signs Most Recent Imported Vital Signs: Most Recent Vital Signs Temp Pulse Resp BP Pulse Ox 36.5 C 84 16 108/75 99 07/02/22 16:29 07/02/22 16:29 07/02/22 16:29 07/02/22 16:29 07/02/22 16:29 Pain Score Most Recent Pain Score: Most Recent Pain Score Pain Level 0 07/02/22 16:29 Assessment Mental Status: Awake (Alert & Oriented to Patient Baseline) Airway and Respiratory Function: Patent airway with normal (patient baseline) respiratory exam Cardiovascular Function: Hemodynamically Stable Hydration Status: Adequately Hydrated Nausea & Vomiting: No Nausea or Vomiting Pain: Pt. Denies Any Pain Peripheral Nerve Block: Patient did not receive a nerve block
[2022-07-02 16:54] VITALS: BP 132/85; PULSE 77; RESP 16; TEMP 36.7; O2SAT 97
--- NOTE | 2022-07-03 06:43 | ROE_ITS ---
Date of service: 07/02/22 Time of Service: 14:50 Operative Note Operative Note DATE OF PROCEDURE: 07/03/22 PRE-OP DIAGNOSIS: Right Carpal Tunnel Syndrome POST-OP DIAGNOSIS: same PROCEDURE: Right Endoscopic Carpal Tunnel Release SURGEON: Arsenio Potts ANESTHESIA TYPE: General:No Airway Refer to Anesthesia Record ESTIMATED BLOOD LOSS: 0 PATHOLOGY: none sent TOURNIQUET TIME: 6 COMPLICATIONS: None Patient was transported to: same day Patient's condition: stable Indications: I have seen Marie in clinic for symptoms of carpal tunnel syndrome. The numbness, tingling, and pain limited function. Clinical exam findings with nerve conduction tests confirmed the diagnosis of carpal tunnel syndrome. Nonoperative measures such as bracing, time, activity modifications had been tried but disability and pain persisted. I discussed carpal tunnel release with the patient. I reviewed the risks of the procedure to include, but not limited to, bleeding, infection, pain, stiffness, incomplete release, damage to nerves or vessels, persistent numbness, recurrence. Despite these risks, the patient elected to proceed. Findings: There was tightened carpal tunnel. This was dilated and released successfully with the endoscopic with increased space within the tunnel. The antebrachial fascia was released proximally freeing the median nerve at the wrist. Procedure Description: Marie was greeted in the preoperative holding area where the correct side was identified and marked. The consent was reviewed with the patient and signed. The history and physical was updated. All questions were answered. She was taken back to the operating room. The patient was placed into the supine position on the operating room table with the right arm on an arm board. A nonsterile tourniquet was placed high onto the arm. All bony prominences were well padded. Prophylactic antibiotics in the form of Cefazolin were administered. The right arm was then prepped with Chloraprep and draped in a standard fashion with stockinette and extremity drape. A timeout to confirm correct identity, side and site, procedure, allergies, anesthesia, and medical concerns was performed. The surgical site was marked in the volar wrist creases in line with the radial border of the fourth ray. This area was anesthetized with approximately 6cc of 1% Lidocaine. The limb was then exsanguinated with an Esmarch. The skin was incised with a 15 blade, approximately 1cm. The skin only was cut and the deeper tissue was dissected bluntly with a tenotomy scissor, avoiding passing nerve and venous structures. The fascia was penetrated and opened bluntly. A two-prong skin hook was placed under this proximal fascial edge. A series of hamate finders were used to identify and dilate the carpal tunnel. Synovial elevator was used to free synovial attachments to the underside of the transverse carpal ligament. My thumb was kept in the palm to carlos a the distal extent of the carpal tunnel and correctly position the hand. The [employer] end oscope was inserted without difficulty and without resistance. Excellent visualization showed horizontally running fibers of the transverse carpal ligament (TCL). The distal extent of the TCL was visualized and the end of the scope palpated with the thumb. The blade was elevated and withdrawn from distal to proximal. The TCL was split into two flaps. The endoscope was reinserted to confirm complete release and any remnant ligament was incised. The scope was withdrawn and the proximal aspect of the carpal tunnel was grossly inspected and appeared release with the median nerve visible. The antebrachial fascia at the level of the wrist was then freed from the overlying skin and then the underlying median nerve with blunt dissection. This was transected longitudinally for about 3cm proximal to the wrist incision. The wound was then irrigated with easy flow of irrigant distally and proximally. The incision was closed with a single 4-0 Nylon suture. The wound was dressed with Xeroform, Gauze, Kerlix and Hi. The tourniquet was deflated with the initial dressing and held with some pressure. Blood flow returned easily to all digits with capillary refill less than 2 seconds. The patient tolerated the procedure well and was returned to the Same Day Surgery area in a stable condition suffering no known complication.
== END 2022-07-02 17:18 | disposition home or self-care (01) ==
PROVIDERS: PCP Nurse Practitioner Family; Visit Provider Student in an Organized Health Care Education/Training Program
PROC: 01N54ZZ Release Median Nerve, Percutaneous Endoscopic Approach (ICD-10-PCS; CPT 29848; principal; 2022-07-02 15:15)
DX: G56.03 Carpal tunnel syndrome, bilateral upper limbs (principal)
CPT/HCPCS: 29848; J0690; J1885; J2704

== ENCOUNTER 2022-07-06 09:30 | Emergency (ER) | payer MEDICAID, SELFPAY ==
[2022-07-06 09:35] VITALS: BP 154/84; PULSE 109; RESP 18; TEMP 36.9; O2SAT 98
--- NOTE | 2022-07-06 09:50 | DI.RAD_ITS ---
Exam(s) XR ANKLE RT COMPLETE EXAM: XR ANKLE RT COMPLETE CLINICAL HISTORY: pain. TECHNIQUE: 2D digital imaging was performed. COMPARISON: CR XR ANKLE LT COMPLETE from 08/23/2020 FINDINGS: 3 views There is a E transverse fracture at the tip of the medial malleolus. There is overlying soft tissue swelling. No other fractures identified. No widening of the ankle mortise. Talar dome unremarkable . IMPRESSION: There is a fracture of the lateral malleolus evident. Mild distraction. DATA REPOSITORY: RADIATION DOSE DELIVERED:
--- NOTE | 2022-07-06 09:53 | ED.GENADUL_ITS ---
Discharge Plan Disposition Patient Disposition: Home Condition: Stable Discharge Details Clinical Impression: Ankle fracture, right Primary Care Provider: Tiana Stanley ED Provider: iBnh Figueroa Home Meds and New Rx's Prescriptions: Continued oqhckkqjep-ranqkkp-pzaxzefl 50-325-40 mg capsule 1 cap PO Q4H PRN MDD 1 PRN (Reason: migraine headache) Qty: 10 2RF meloxicam 15 mg tablet 15 mg PO DAILY Qty: 60 0RF cyclobenzaprine 10 mg tablet 10 mg PO TID PRN (Reason: muscle spasm) Qty: 30 0RF medroxyprogesterone [Depo-Provera] 150 mg/mL suspension 150 mg IM Q12W Qty: 1 3RF sertraline 100 mg tablet 100 mg PO HS hydrocodone-acetaminophen 5-325 mg tablet 1 tab PO Q6H PRN (Reason: pain) Qty: 12 0RF acetaminophen 500 mg tablet 500 mg PO Q6H PRN PRN (Reason: pain) Qty: 40 3RF ibuprofen 600 mg tablet 600 mg PO TID PRN (Reason: pain) Qty: 90 3RF Discharge Instructions Instructions: Ankle Fracture (ED) Additional Instructions: You have a small break in the bone on the outer ankle call orthopedics Friday to arrange a follow up appointment if you feel more ill, have severe worsening pain return to the emergency department Stand Alone Forms: Work Release Medical Decision Making 42 yo female comes in with right ankle pain s/p fall. She was going down stairs and the last step she put her right foot down and inverted her ankle. She did not strike her head, denies preceding symptoms such as chest pain or lightheadedness, felt well prior to this fall. She has lateral right ankle pain. She has no tenderness in the hip, thigh, knee or proximal/mid tib/fib. She has lateral malleolus swelling and limited rom of the ankle due tot he pain, no palpable defect of the achilles, normal sensation and cap refill in the foot. Suspect sprain/fracture will proceed with xrays of the ankle. xray shows nondisplaced lateral malleolar fracture, no other fractures. Pt stable, will provide walking boot, she advised she has crutches at home and will f/u with ortho Differential Diagnosis Differential Diagnosis: sprain, strain, fracture, contusion Imaging Data Radiologic Study: Attestation: I personally reviewed and interpreted this imaging study as follows: Imaging: X-Ray Radiologist's impression: IMPRESSION: Age-indeterminate lateral malleolar fracture new since the prior study with overlying swelling. Acute on chronic fracture can not be excluded HPI General Date/Time Provider Initiated Documentation: 07/06/22 09:31 . Limitations to Documentation: no limitations . Information obtained by: patient . History of Present Illness 42 year old F presents to the emergency department with the chief complaint of right ankle pa in, described as moderate and severe, Quality is described as aching, and is localized to the right and lower extremity. Patient started experiencing this hour(s) (1) and it has been constant. Rest improves symptom(s), Movement worsens symptoms . Patient notes no other symptoms.. Patient did receive the following treatments prior to arrival, none Related Data Home Medications Medication Instructions Recorded Confirmed zsihswsryf-hmffyjc-rakznqzy 50 1 cap PO Q4H PRN PRN migraine 11/30/21 07/06/22 mg-325 mg-40 mg capsule headache #10 caps cyclobenzaprine 10 mg tablet 10 mg PO TID PRN muscle spasm #30 05/16/22 07/06/22 tab-caps medroxyprogesterone 150 mg/mL 150 mg IM Q12W #1 mL 05/23/22 07/06/22 intramuscular suspension (Depo-Provera) meloxicam 15 mg tablet 15 mg PO DAILY #60 tabs 06/19/22 07/06/22 sertraline 100 mg tablet 100 mg PO HS 07/01/22 07/06/22 acetaminophen 500 mg tablet 500 mg PO Q6H PRN PRN pain #40 tabs 07/02/22 07/06/22 hydrocodone 5 mg-acetaminophen 325 1 tab PO Q6H PRN pain #12 tabs 07/02/22 07/06/22 mg tablet ibuprofen 600 mg tablet 600 mg PO TID PRN pain #90 tabs 07/02/22 07/06/22 Previous Rx's Medication Instructions Recorded [id number]-nvgukqc-[id number] 50 1 cap PO Q4H PRN PRN migraine 11/30/21 mg-325 mg-40 mg capsule headache #10 caps cyclobenzaprine 10 mg tablet 10 mg PO TID PRN muscle spasm #30 05/16/22 tab-caps medroxyprogesterone 150 mg/mL 150 mg IM Q12W #1 mL 05/23/22 intramuscular suspension (Depo-Provera) meloxicam 15 mg tablet 15 mg PO DAILY #60 tabs 06/19/22 acetaminophen 500 mg tablet 500 mg PO Q6H PRN PRN pain #40 tabs 07/02/22 hydrocodone 5 mg-acetaminophen 325 1 tab PO Q6H PRN pain #12 tabs 07/02/22 mg tablet ibuprofen 600 mg tablet 600 mg PO TID PRN pain #90 tabs 07/02/22 Allergies Allergy/AdvReac Type Severity Reaction Status Date / Time erythromycin base Allergy Intermediate Vomitting, Verified 07/06/22 09:41 itchy chocolate flavor Allergy Mild Hives Verified 07/06/22 09:41 Penicillins Allergy Mild Uncertain- Verified 07/06/22 09:41 reaction escitalopram AdvReac Palpitations, Verified 07/06/22 09:41 chest tightness coconut flavor Allergy Anaphylaxsi Uncoded 07/06/22 09:41 s Dust AdvReac itchy Uncoded 07/06/22 09:41 watery eyes General Stated Complaint: Orthopedic IMANI: 4 Review of Systems All systems reviewed & are unremarkable except as noted in HPI and below Constitutional Constitutional: Denies chills, Denies fever(s) and Denies weakness Cardiovascular Cardiovascular: Denies chest pain and Denies dyspnea Respiratory Respiratory: Denies cough and Denies dyspnea Gastrointestinal Gastrointestinal: Denies abdominal pain, Denies nausea and Denies vomiting Integumentary/Breasts Skin/Breast: Denies rash Neurologic Neurologic: Denies weakness PFSH All Active Problems (Updated 07/06/22 @ 10:27 by Binh Figueroa MD) Ankle fracture, right (Acute) MCL sprain of right knee (Acute) Internal derangement of right knee (Acute 05/06/22) Menstrual migraine without status migrainosus, not intractable (Chronic 06/19/16) well controlled w/ continuous Sprintec; 09/18 initiation of DMPA for control Encounter for Depo-Provera contraception (Acute) Major depressive disorder, recurrent episode (Chronic) LGSIL on Pap smear of cervix (Acute) Alcohol dependence, binge pattern (Acute) Bilateral carpal tunnel syndrome (Acute) Tobacco use disorder (Acute) Obesity (Chronic) Hyperlipidemia, unspecified (Acute) IFG (impaired fasting glucose) (Acute) Medical History 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 History of depression Pt reported on 12/29/20 Dx PPD after 1st child was born who is now 21 y/o. Has struggled with Depression symptoms on and off, not currently on medication, hx of counseling and medication. Would like to establish with a counselor. Internal derangement of left knee Surgical History section X4 Status post left knee surgery (~2014) Cyst removal; Dr. Lindquist Family History Maternal Grandfather Substance use disorder Father Non-Hodgkin lymphoma Depression Son Depression Daughter Depression Heart disease Social History Smoking/Tobacco Use Status: Current every day Tobacco Type: cigarettes Tobacco: How many years used: 20 Quit status: considering quitting (Information given on 802 quits program) Counseling given: patient declined (Patient stated at this time she does not have time to worry about herself. ) Smoking risk assessment performed?: Yes Alcohol Intake: current Alcohol Intake frequency: holidays/special occasions only Alcohol type: hard liquor Drug use: Never Substance use type: does not use Details: smoked cigarettes today Adopted: No Caregiver/Support person: No Foster care: Yes Household members: spouse and children Housing: house Number of Children: 4 Education Level: high school Do you need help understanding health information?: Never current occupation: [employer] for [employer] Pets and animals: Yes Pets and animals: dog(s) and other Details: didier Sexually active: Yes Do you think of yourself as: straight/heterosexual Current gender identity: female Other: from man who was father to her 4 children; remarried What is your relationship status?: How often do you talk on the phone with friends or family?: three or more times per week How often do you get together with friends or relatives?: three or more times per week Do you belong to any clubs or organized social groups?: yes Panel score (0-1 are the most socially isolated patients): 3 Brynn/Advent: None Special brynn needs: No Seatbelt use: sometimes Helmet use: Yes Helmet use: always Drive intox or ride w/intox interstate bus driver: No Do you feel safe at home: Yes Do you feel safe in your relationship?: Yes Female Reproductive History Menstrual Age of Menarche: 15 control method: permanent sterilization History History 4 Para 4 Hx # Term Pregnancies Multiple births Hx # Pregnancies Ectopic pregnancies AB induced Hx Number of Living Children AB spontaneous Exam Const General: no acute distress Orientation: alert HENMT Head: normal to inspection Ears: external ears normal General nose exam: external nose normal Mouth: moist mucous membranes Eyes General: appearance normal, both eyes and all related structures Neck Neck: normal visual inspection Resp Effort & Inspection: normal respiratory effort and able to speak in complete sentences Cardio Rate: regular rate Skin General skin exam: no rashes or lesions noted Neuro General: patient alert and patient oriented x3 Extrem General: capillary refill normal Psych Mental Status: mental status grossly normal Course Vital Signs Vital signs: Vital Signs Temperature 36.9 C 07/06/22 09:35 Pulse 109 H 07/06/22 09:35 Respiratory Rate 18 07/06/22 09:35 Blood Pressure 154/84 H 07/06/22 09:35 Pulse Oximetry 98 07/06/22 09:35 Temperature 36.9 C 07/06/22 09:35 Temperature Source Oral 07/06/22 09:35 Pulse 109 H 07/06/22 09:35 Respiratory Rate 18 07/06/22 09:35 Respiratory Effort Normal, Non-Labored 07/06/22 09:38 Blood Pressure 154/84 H 07/06/22 09:35 Blood Pressure Position Sitting 07/06/22 09:35 Pulse Oximetry 98 07/06/22 09:35 Oxygen Delivery Method Room Air 07/06/22 09:35 Oxygen Flow Rate 0 07/06/22 09:35 Pain Level 10 07/06/22 09:42 Comment no pain when not weightbearing 07/06/22 09:35 PAWSS Have you Been Recently Intoxicated or Drunk Within the Last 30 days?: No Have you Ever Experienced Previous Episodes of Alcohol Withdrawal?: No Have you ever Experienced Withdrawal Seizures?: No Have you ever Experienced Delirium Tremens(DT)s?: No Have you ever undergone Alcohol Rehabilitation Treatment (i.e, inpt ot outpatient treatment programs)?: No Have you ever Experienced Blackouts?: Yes Have you ever Combined Alcohol with other Downers within the last 90 days?: No Have you ever Combined Alcohol with any other Substance of Abuse during the last 90 days?: No Positive Blood Alcohol level on Presentation? [PCS.BAL]: No Evidence of Increased Autonomic Activity (i.e. HR>120, tremor, sweating, agitation, nausea)?: No Result: 1
[2022-07-06] MEDS: Ibuprofen 600 MG TAB PO (09:55)
--- NOTE | 2022-07-06 10:11 | DI.VRAD_ITS ---
PROCEDURE INFORMATION: Exam: XR Right Ankle Exam date and time: 07/06/2022 10:02 AM Age: 42 years old Clinical indication: Other: Pain after fall TECHNIQUE: Imaging protocol: Radiologic exam of the right ankle. Views: 3 or more views. COMPARISON: MR LOWER JOINT RT WO 05/30/2022 8:46 AM FINDINGS: Bones/joints: Age-indeterminate lateral malleolar fracture. No dislocation Soft tissues: Mild swelling laterally IMPRESSION: Age-indeterminate lateral malleolar fracture new since the prior study with overlying swelling. Acute on chronic fracture can not be excluded Dictated and Authenticated by: Hernan Sheridan MD. Ordering:SIMA Purcell MD
== END 2022-07-06 10:37 | disposition home or self-care (01) ==
PROVIDERS: Emergency Provider Emergency Medicine; PCP Nurse Practitioner Family
DX: S82.64XA Nondisplaced fracture of lateral malleolus of right fibula, initial encounter for closed fracture (principal); W10.9XXA Fall (on) (from) unspecified stairs and steps, initial encounter
CPT/HCPCS: 29515; 99284; 73610; 99283

== ENCOUNTER 2022-07-18 10:10 | Outpatient (CLI) | payer MEDICAID, SELFPAY ==
--- NOTE | 2022-07-18 09:30 | DI.RAD_ITS ---
Exam(s) XR ANKLE RT 2V EXAM: XR ANKLE RT 2V CLINICAL HISTORY: fracture follow up. TECHNIQUE: 2D digital imaging was performed of the right ankle. Two images were obtained. AP and l ateral views were obtained. COMPARISON: CR,XR XR ANKLE RT COMPLETE from 07/06/2022 FINDINGS: BONES: There has been no change in alignment of the nondisplaced fracture involving the tip of the la teral malleolus. No bony destructive lesion is seen. There is a small enthesophyte at the posterior calcaneus. JOINTS: The ankle mortise is normally aligned. SOFT TISSUE: There is soft tissue swelling laterally. IMPRESSION: Stable lateral malleolar fracture and associated soft tissue swelling. DATA REPOSITORY: RADIATION DOSE DELIVERED:
== END 2022-07-18 10:11 | disposition home or self-care (01) ==
LOC: DIORS 10:11
PROVIDERS: PCP Nurse Practitioner Family; Referring Provider Nurse Practitioner Family; Visit Provider Physician Assistant
DX: S82.61XD Displaced fracture of lateral malleolus of right fibula, subsequent encounter for closed fracture with routine healing (principal); W10.9XXD Fall (on) (from) unspecified stairs and steps, subsequent encounter; X58.XXXD Exposure to other specified factors, subsequent encounter
CPT/HCPCS: 73600

== ENCOUNTER 2022-08-15 10:17 | Outpatient (CLI) | payer MEDICAID, SELFPAY ==
--- NOTE | 2022-08-15 10:34 | DI.RAD_ITS ---
Exam(s) XR ANKLE RT COMPLETE EXAM: XR ANKLE RT COMPLETE CLINICAL HISTORY: F/U FRACTURE. TECHNIQUE: 2D digital imaging was performed. COMPARISON: CR XR ANKLE RT 2V from 07/18/2022 FINDINGS: 3 views Again noted is transverse fracture of tip of the lateral malleolus with overlying soft tissue swellin g. There is no obvious callus formation. There appears to be some slight further distraction at the fracture site. There is no widening of the ankle mortise. Talar dome appears unremarkable. Subtalar joint appears unremarkable. No osseous tarsal coalition evident. IMPRESSION: Lateral malleolus tip fracture again noted, as described above DATA REPOSITORY: RADIATION DOSE DELIVERED:
== END 2022-08-15 10:18 | disposition home or self-care (01) ==
LOC: DIORS 10:17
PROVIDERS: PCP Nurse Practitioner Family; Referring Provider Nurse Practitioner Family; Visit Provider Physician Assistant
DX: S82.61XD Displaced fracture of lateral malleolus of right fibula, subsequent encounter for closed fracture with routine healing (principal); X58.XXXD Exposure to other specified factors, subsequent encounter; W10.9XXD Fall (on) (from) unspecified stairs and steps, subsequent encounter; Z47.89 Encounter for other orthopedic aftercare
CPT/HCPCS: 73610

== ENCOUNTER 2022-08-27 09:20 | Day surgery (SDC) | payer MEDICAID, SELFPAY ==
[2022-08-27] VITALS (7 sets, daily range): BP systolic 128–141; BP diastolic 50–94; PULSE 72–85; RESP 16–19; TEMP 36.2–36.8; O2SAT 98–100; BMI 45.6
[2022-08-27] MEDS: Lactated Ringers 1,000 ML 80 ML IV (10:06)
--- NOTE | 2022-08-27 10:22 | W.ANESPRE ---
General Info Date of Service Date Performed: 08/27/22 Height: 5 ft 2 in Weight: 113 kg Body Mass Index (BMI): 45.6 Surgical Procedure: Operation Date: 08/27/22 12:25 Proposed Procedure Side Surgeon p RIGHT CUBITAL TUNNEL RELEASE Right Arsenio Potts MD Meds Allergies and Home Medications Allergies Allergy/AdvReac Type Severity Reaction Status Date / Time erythromycin base Allergy Intermediate Vomitting, Verified 08/15/22 10:10 itchy chocolate flavor Allergy Mild Hives Verified 08/15/22 10:10 Penicillins Allergy Mild Uncertain- Verified 08/15/22 10:10 reaction escitalopram AdvReac Palpitations, Verified 08/15/22 10:10 chest tightness coconut flavor Allergy Anaphylaxsi Uncoded 08/15/22 10:10 s Dust AdvReac itchy Uncoded 08/15/22 10:10 watery eyes Home Medication Medication Instructions Recorded [id number]-soxztgg-ijvxgnvt 50 1 cap PO Q4H PRN PRN migraine 11/30/21 mg-325 mg-40 mg capsule headache #10 caps cyclobenzaprine 10 mg tablet 10 mg PO TID PRN muscle spasm #30 05/16/22 tab-caps medroxyprogesterone 150 mg/mL 150 mg IM Q12W #1 mL 05/23/22 intramuscular suspension (Depo-Provera) sertraline 100 mg tablet 100 mg PO HS 07/01/22 acetaminophen 500 mg tablet 500 mg PO Q6H PRN PRN pain #40 tabs 07/02/22 ibuprofen 600 mg tablet 600 mg PO TID PRN pain #90 tabs 07/02/22 meloxicam 15 mg tablet 15 mg PO DAILY PRN 08/26/22 Current Visit Medications: Current Medications Generic Name Dose Route Start Last Admin Trade Name Freq PRN Reason Stop Dose Admin Ringer's Solution 1,000 mls @ 80 mls/hr 08/27/22 06:00 08/27/22 10:06 IV 09/25/22 23:59 80 mls/hr INFUSION CHEVY Administration Cefazolin Sodium/Dextrose 2 gm in 50 mls @ 100 mls/hr 08/27/22 06:00 Ancef Duplex IVPB 08/27/22 16:00 PREOP CHEVY IV Miscellaneous Supplies 1 each 08/27/22 06:00 Iv Access IV 09/25/22 23:59 DIRECTED CHEVY Sodium Chloride 0 ml 08/27/22 06:00 Normal Saline Flush 10 Ml Syr IV 09/25/22 23:59 PRN PRN Sodium Chloride 0 ml 08/27/22 06:00 Normal Saline 10 Ml Vial IJ 09/25/22 23:59 DIRECTED PRN Sterile Water 0 ml 08/27/22 06:00 Water,Injection,Sterile 10 Ml Vial IJ 09/25/22 23:59 DIRECTED PRN PFSH Active Problems Active Problems: Problem Status Onset Code Menstrual migraine without status migrainosus, not intractable 06/19/16 G43.829 Encounter for Depo-Provera contraception Z30.42 Major depressive disorder, recurrent episode F33.9 LGSIL on Pap smear of cervix R87.612 Alcohol dependence, binge pattern F10.20 Bilateral carpal tunnel syndrome G56.03 Tobacco use disorder F17.200 Obesity E66.9 Hyperlipidemia, unspecified E78.5 IFG (impaired fasting glucose) R73.01 Internal derangement of right knee 05/06/22 M23.91 MCL sprain of right knee S83.411A Fracture of ankle, lateral malleolus, right, closed S82.61XA Cubital tunnel syndrome on right G56.21 Medical History Medical History 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 History of depression Pt reported on 12/29/20 Dx PPD after 1st child was born who is now 21 y/o. Has struggled with Depression symptoms on and off, not currently on medication, hx of counseling and medication. Would like to establish with a counselor. Internal derangement of left knee Surgical History Surgical History section X4 History of carpal tunnel release Status post left knee surgery (~2014) Cyst removal; Dr. Lindquist Tobacco Smoking/Tobacco Use Status: Current every day Tobacco Type: cigarettes Counseling given: patient declined Alcohol Alcohol Intake: current Alcohol intake frequency: holidays/special occasions only Alcohol type: hard liquor Substance Use Substance use: Never Substance use type: does not use Details: smoked cigarettes today Prental History History 4 Para 4 Hx # Term Pregnancies Multiple births Hx # Pregnancies Ectopic pregnancies AB induced Hx Number of Living Children AB spontaneous Vital Signs and Lab Results Vital Signs Most Recent Vital Signs in EMR: Most Recent Vital Signs Temp Pulse Resp BP Pulse Ox 36.4 C L 79 16 138/92 H 98 08/27/22 09:27 08/27/22 09:27 08/27/22 09:27 08/27/22 09:27 08/27/22 09:27 Lab Results Blood Type / Crossmatch: No Data to Display Complete Blood Count: No Data to Display Complete Metabolic Panel: No Data to Display Liver Function Panel: No Data to Display Coagulation Panel: No Data to Display Cardiac Panel: No Data to Display Arterial Blood Gas: No Data to Display Venous Blood Gas: No Data to Display Pancreas Panel: No Data to Display Thyroid Panel: No Data to Display Infectious Disease: No Data to Display Blood Cultures: No Data to Display Toxicology Panel: No Data to Display Panel: No Data to Display Anesthesia Assessment and Plan Anesthesia History Personal History: No History of Anesthesia Complications Family History: No Family History of Anesthesia Complications Exercise Tolerance Exercise Tolerance: Metabolic Equivalents>4 Pertinent Negatives Pertinent Negatives: No Symptoms of GERD Cardiac & Pulmonary Exam Cardiac Exam: Normal S1/S2 Heart Sounds Pulmonary Exam: Clear Bilateral Breath Sounds Implantable Cardiac Device Does patient have a Pacemaker or an ICD?: No Airway Exam Known Difficult Airway: No Mallampati Class: 3 Mouth Opening: Normal (> 3cm) Thyromental Distance: Greater than 3 cm Neck Range of Motion: Full ROM Neck Circumference: Thick Teeth Condition: Normal Dentition ASA Classification ASA Score: ASA 2 Emergency Case?: No NPO Status NPO Status: NPO Clears >2 hours, Solids >8 hours Status Status: Pt. refuses testing, she was counseled on anesthesia risks (no periods for 10 years.) Anesthesia Plan Resuscitation Status: Full Code Anesthesia Technique: General Anesthesia Airway Planned: LMA Monitors Used: Standard Monitors
--- NOTE | 2022-08-27 10:34 | HPE_ITS ---
Assessment and Plan Assessment and plan (1) Cubital tunnel syndrome on right: Status: Acute Assessment and plan: Marie is a 42-year-old female who is here today for right cubital tunnel release. She continues have ongoing ulnar nerve symptoms and would like these relieved with the surgery. See the previous office note for the complete detailed history. How was again reviewed the technical features of the case. I discussed the risk to include bleeding, infection, pain, stiffness, recurrence, continued symptoms, incomplete release, secondary points of compression, damage to superficial nerves over the medial elbow, nerve instability, need for repeat procedures. I would perform an anterior subcutaneous transposition of necessary based on the nerve stability after the initial release was completed. I reviewed all this with Marie. All of her questions were answered. History of Present Illness History of Present Illness Chief Complaint: Right Cubital Tunnel Syndrome Narrative: Marie is a 42-year-old female who presents today for her right cubital tunnel syndrome. She was seen in the office previously and diagnosed with this disease process. She is status post carpal tunnel release for which fix the median nerve symptoms but continues of ulnar nerve symptoms. She is here today for the cubital tunnel release. She denies any recent illness. No chest pain or shortness of breath. No fevers or chills. Review of Systems All systems reviewed & are unremarkable except as noted in HPI and below PFSH All Active Problems Menstrual migraine without status migrainosus, not intractable (Chronic 06/19/16) well controlled w/ continuous Sprintec; 09/18 initiation of DMPA for control Encounter for Depo-Provera contraception (Acute) Major depressive disorder, recurrent episode (Chronic) LGSIL on Pap smear of cervix (Acute) Alcohol dependence, binge pattern (Acute) Bilateral carpal tunnel syndrome (Acute) s/p Right ECTR on 07/02/22 Tobacco use disorder (Acute) Obesity (Chronic) Hyperlipidemia, unspecified (Acute) IFG (impaired fasting glucose) (Acute) Internal derangement of right knee (Acute 05/06/22) MCL sprain of right knee (Acute) Fracture of ankle, lateral malleolus, right, closed (Acute) Cubital tunnel syndrome on right (Acute) Medical History 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 History of depression Pt reported on 12/29/20 Dx PPD after 1st child was born who is now 21 y/o. Has struggled with Depression symptoms on and off, not currently on medication, hx of counseling and medication. Would like to establish with a counselor. Internal derangement of left knee Surgical History section X4 History of carpal tunnel release Status post left knee surgery (~2014) Cyst removal; Dr. Lindquist Family History Maternal Grandfather Substance use disorder Father Non-Hodgkin lymphoma Depression Son Depression Daughter Depression Heart disease Social History Smoking/Tobacco Use Status: Current every day Tobacco Type: cigarettes Tobacco: How many years used: 20 Quit status: considering quitting Counseling given: patient declined Smoking risk assessment performed?: Yes Alcohol Intake: current Alcohol Intake frequency: holidays/special occasions only Alcohol type: hard liquor Drug use: Never Substance use type: does not use Details: smoked cigarettes today Adopted: No Caregiver/Support person: No Foster care: Yes Household members: spouse and children Housing: house Number of Children: 4 Education Level: high school Do you need help understanding health information?: Never current occupation: Residential Care for [employer] Pets and animals: Yes Pets and animals: dog(s) and other Details: didier Sexually active: Yes Do you think of yourself as: straight/heterosexual Current gender identity: female Other: from man who was father to her 4 children; remarried What is your relationship status?: How often do you talk on the phone with friends or family?: three or more times per week How often do you get together with friends or relatives?: three or more times per week Do you belong to any clubs or organized social groups?: yes Panel score (0-1 are the most socially isolated patients): 3 Brynn/Protestant: None Special brynn needs: No Seatbelt use: sometimes Helmet use: Yes Helmet use: always Drive intox or ride w/intox grain combine driver: No Do you feel safe at home: Yes Do you feel safe in your relationship?: Yes Female Reproductive History Menstrual Age of Menarche: 15 control method: permanent sterilization History History 4 Para 4 Hx # Term Pregnancies Multiple births Hx # Pregnancies Ectopic pregnancies AB induced Hx Number of Living Children AB spontaneous Meds Allergies and Home Medications Allergies Allergy/AdvReac Type Severity Reaction Status Date / Time erythromycin base Allergy Intermediate Vomitting, Verified 08/15/22 10:10 itchy chocolate flavor Allergy Mild Hives Verified 08/15/22 10:10 Penicillins Allergy Mild Uncertain-infant Verified 08/15/22 10:10 reaction escitalopram AdvReac Palpitations, Verified 08/15/22 10:10 chest tightness coconut flavor Allergy Anaphylaxsi Uncoded 08/15/22 10:10 s Dust AdvReac itchy Uncoded 08/15/22 10:10 watery eyes Home Medications Medication Instructions Recorded Confirmed Type esrppxmkur-oinodcq-ayorfawv 50 1 cap PO Q4H PRN PRN migraine 11/30/21 08/27/22 Rx mg-325 mg-40 mg capsule headache #10 caps cyclobenzaprine 10 mg tablet 10 mg PO TID PRN muscle spasm #30 05/16/22 08/27/22 Rx tab-caps medroxyprogesterone 150 mg/mL 150 mg IM Q12W #1 mL 05/23/22 08/15/22 Rx intramuscular suspension (Depo-Provera) sertraline 100 mg tablet 100 mg PO HS 07/01/22 08/27/22 History acetaminophen 500 mg tablet 500 mg PO Q6H PRN PRN pain #40 tabs 07/02/22 08/27/22 Rx ibuprofen 600 mg tablet 600 mg PO TID PRN pain #90 tabs 07/02/22 08/27/22 Rx meloxicam 15 mg tablet 15 mg PO DAILY PRN 08/26/22 08/27/22 History Exam Const General: cooperative, healthy appearing, comfortable and no acute distress Resp Auscultation: clear to auscultation bilaterally Cardio Rate: regular rate Rhythm: regular rhythm Results Last Vital Signs Temp 36.4 C L 08/27/22 09:27 Pulse 79 08/27/22 09:27 Resp 16 08/27/22 09:27 BP 138/92 H 08/27/22 09:27 Pulse Ox 98 08/27/22 09:27
--- NOTE | 2022-08-27 10:41 | PDOC.DSDIS_ITS ---
Date of service: 08/27/22 Time of Service: 10:41 Discharge Plan Disposition Patient Disposition: Home Condition: Good Discharge Details Reason For Visit: Right Cubital Tunnel Syndrome Attending Provider: Arsenio Potts Primary Care Provider: Tiana Stanley Home Meds and New Rx's Prescriptions: New hydrocodone-acetaminophen 5-325 mg tablet 1 tab PO Q6H PRN (Reason: pain) Qty: 12 0RF Continued kziaxtcwfa-sfjhews-ooggpttv 50-325-40 mg capsule 1 cap PO Q4H PRN MDD 1 PRN (Reason: migraine headache) Qty: 10 2RF cyclobenzaprine 10 mg tablet 10 mg PO TID PRN (Reason: muscle spasm) Qty: 30 0RF medroxyprogesterone [Depo-Provera] 150 mg/mL suspension 150 mg IM Q12W Qty: 1 3RF sertraline 100 mg tablet 100 mg PO HS meloxicam 15 mg tablet 15 mg PO DAILY PRN acetaminophen 500 mg tablet 500 mg PO Q6H PRN PRN (Reason: pain) Qty: 40 3RF ibuprofen 600 mg tablet 600 mg PO TID PRN (Reason: pain) Qty: 90 3RF Discharge Instructions Additional Instructions: Cubital Tunnel Decompression Discharge Instructions Activity: You should stay in the sling for the first 2 weeks. You may come out of the sling for gentle motion and hygiene but should largely remain in the sling to allow the incision site to heal. Gentle motion of the elbow, hand, wrist, and fingers is okay and encouraged after the first few days, but no repetitive activites nor heavy lifting. You may apply ice. Medications: - You should take Tylenol and Ibuprofen around the clock. - You have been prescribed Hydrocodone for breakthrough pain. Dressings: - The initial surgical dressing should stay in place for 3 days. It may then be removed and kept clean and dry. You should cover with a light gauze dressing. - You may shower after 3 days and get the wound wet. Follow-up: 10 days Referrals: Arsenio Potts MD [ [facility] STAFF PHYSICIAN] - Equipment/Supplies: Sling Activity:: Activity as Tolerated Remove Dressings/Wound Care:: 72 hours Shower/Bathe:: 72 hours Diet:: As Tolerated Discharge Orders Discharge Orders: Discharge Order (Routine); Ordered 08/27/22 Ordered By: Arsenio Potts DS: Diagnosis Discharge Diagnosis (1) Cubital tunnel syndrome on right: Status: Acute
[2022-08-27] MEDS: ceFAZolin 2 GM/50 ML BAG IVPB (12:45)
--- NOTE | 2022-08-27 14:01 | W.ANESPOSTOP ---
Postoperative Evaluation Date, Time and Location Date Performed: 08/27/22 Time Performed: 14:02 Patient Location: PACU Vital Signs Most Recent Imported Vital Signs: Most Recent Vital Signs Temp Pulse Resp BP Pulse Ox 36.4 C L 80 16 128/78 100 08/27/22 13:56 08/27/22 13:56 08/27/22 13:56 08/27/22 13:56 08/27/22 13:56 Pain Score Most Recent Pain Score: Most Recent Pain Score Pain Level 0 08/27/22 13:56 Assessment Mental Status: Awake (Alert & Oriented to Patient Baseline) Airway and Respiratory Function: Patent airway with normal (patient baseline) respiratory exam Cardiovascular Function: Hemodynamically Stable Hydration Status: Adequately Hydrated Nausea & Vomiting: No Nausea or Vomiting Pain: Pt. Denies Any Pain Peripheral Nerve Block: Patient did not receive a nerve block
--- NOTE | 2022-08-27 18:50 | W.PM.OP ---
Date of service: 08/27/22 Time of Service: 13:30 Operative Note Operative Note DATE OF PROCEDURE: 08/27/22 PRE-OP DIAGNOSIS: Right Cubital Tunnel Syndrome POST-OP DIAGNOSIS: same PROCEDURE: Right cubital Tunnel Decompression SURGEON: Arsenio Potts ELECTROPLATING WORKER: Veronika Mcdaniel ANESTHESIA TYPE: General LMA/ETT Refer to Anesthesia Record ESTIMATED BLOOD LOSS: 0 PATHOLOGY: none sent TOURNIQUET TIME: 0 COMPLICATIONS: None Patient was transported to: PACU Patient's condition: stable Indications: Marie is a 42-year-old female who has had symptoms of cubital tunnel syndrome. Nonoperative treatment options had been trialed. Nerve conduction studies identified the cubital tunnel as the point of compression. Given failure of nonoperative treatments and persistent symptoms, I offered operative intervention. I reviewed the technical details of a cubital tunnel decompression with possible anterior subcutaneous transposition. I reviewed the risk of the procedure to include bleeding, infection, pain, stiffness, tendon instability, damage to the superficial radial nerve, and complete release. Despite these risks, the patient elected to proceed. Findings: There was a tightened cubital tunnel. There also was an anconeus epitrochlearis muscle present which was resected. The ulnar nerve was release from the first motor branch distally, where it was quite tight within the muscle, and then through the [facility] proximally. Procedure Description: Marie was greeted in the preoperative holding area. Name and surgical site were confirmed. The history and physical was completed. The consent was reviewed the patient and signed. Marie was taken back to the operating room. The patient was placed in the supine positioned and a general anesthetic was administered. The right was then prepped with ChloraPrep and draped in a standard fashion after a nonsterile tourniquet was placed high up into the axilla of the arm. Prophylactic antibiotics in the form of cefazolin were administered. A timeout was performed for safe surgery. The surgical site was drawn on the skin as was the medial epicondyle borders. The planned surgical field was anesthetized with 1% lidocaine with epinephrine. A 8 cm incision was made curvilinearly around the medial elbow. The skin was incised only. The deep tissue and subcutaneous fat was dissected with a tenotomy scissors trying to protect any branches of the medial antebrachial cutaneous nerve. Any branches that were identified were retracted out of the way. The ulnar nerve was palpated and identified. A small window into the cubital tunnel, sheath overlying the nerve, was created and the nerve was able to be palpated with the [place]. A Metzenbaum scissor was then used to open up the sheath starting with Morton's ligament. Initial identification of the nerve is difficult as this area was covered by an extra muscle, anconeus epithroclearis. This was resected and visualization of the nerve was fully obtained. There are also multiple crossing branches of the the medial antebrachial cutaneous nerve were protected I then worked distal over the ulnar nerve releasing any constraints against the nerve all the way to the fascia of the FCU muscle belly. This muscle belly was bluntly all the way down to the first motor branch of the ulnar nerve and the overlying fascia was incised. The nerve was quite tight in this location. I fully dissected the muscle from the nerve until there was no compression on the nerve itself. Likewise starting there at the lateral epicondyle, I proceeded to work proximally to release any constraints over the ulnar nerve. This was taken all the way to the arcade of [place]. The medial intermuscular septum was also palpated and any sharp edges against the ulnar nerve were resected and released. After fully releasing the nerve it was inspected visually. I was also able to palpate the nerve fully and reach one finger up into the proximal and distal aspects to make sure there were no constraints against the nerve. A freer elevator was also used to slide easily against the ulnar nerve without any points of constriction. The arm was then taken through range of motion. The ulnar nerve did not sublux/dislocate out of its groove behind the medial epicondyle. Therefore, no transposition was performed. Any areas of bleeding were cauterized with bipolar electrocautery. The wound was thoroughly irrigated. The deep tissue was closed with a 3-0 Vicryl. The skin was closed with a 4-0 nylon. The wound was dressed with Xeroform, 4 x 4's, ABD, Kerlix and an Hi wrap. Marie was placed into a sling. Marie was transferred back to the PACU in a stable condition.
== END 2022-08-27 14:50 | disposition home or self-care (01) ==
PROVIDERS: PCP Nurse Practitioner Family; Visit Provider Student in an Organized Health Care Education/Training Program
PROC: (CPT 64718; principal; 2022-08-27 12:15)
DX: G56.21 Lesion of ulnar nerve, right upper limb (principal)
CPT/HCPCS: 64718; J0690; J1100; J1885; J2001; J2250; J2405; J2704

== ENCOUNTER 2022-09-26 10:18 | Outpatient (CLI) | payer MEDICAID, SELFPAY ==
--- NOTE | 2022-09-26 10:30 | DI.RAD_ITS ---
Exam(s) XR ANKLE RT COMPLETE EXAM: XR ANKLE RT COMPLETE CLINICAL HISTORY: F/U FRACTURE. TECHNIQUE: 2D digital imaging was performed. COMPARISON: CR XR ANKLE RT COMPLETE from 08/15/2022 FINDINGS: 3 views The transverse fracture site at the lateral malleolus tip is again noted and appears unchanged. No o bvious callus formation. No further or widening at the fracture site. No additional fractures. Pietro ar dome unremarkable. IMPRESSION: No significant radiographic change when compared to 08/15/2022. DATA REPOSITORY: RADIATION DOSE DELIVERED:
== END 2022-09-26 10:19 | disposition home or self-care (01) ==
LOC: DIORS 10:19
PROVIDERS: PCP Nurse Practitioner Family; Referring Provider Nurse Practitioner Family; Visit Provider Student in an Organized Health Care Education/Training Program
DX: S82.61XD Displaced fracture of lateral malleolus of right fibula, subsequent encounter for closed fracture with routine healing (principal); X58.XXXD Exposure to other specified factors, subsequent encounter
CPT/HCPCS: 73610

== ENCOUNTER 2022-10-30 10:02 | Day surgery (SDC) | payer MEDICAID, SELFPAY ==
[2022-10-30] VITALS (7 sets, daily range): BP systolic 135–152; BP diastolic 67–88; PULSE 72–81; RESP 16–20; TEMP 36.2–36.7; O2SAT 94–100; BMI 45.1
--- NOTE | 2022-10-30 10:18 | W.PM.DSUDISC ---
Date of service: 10/30/22 Time of Service: 10:19 Discharge Plan Disposition Patient Disposition: Home Condition: Good Discharge Details Reason For Visit: L ECTR, L Cubital Tunnel Release Attending Provider: Arsenio Potts Primary Care Provider: Tiana Stanley Home Meds and New Rx's Prescriptions: New acetaminophen 500 mg tablet 1,000 mg PO TID Qty: 90 0RF hydrocodone-acetaminophen 5-325 mg tablet 1 tab PO Q6H PRN (Reason: pain) Qty: 12 0RF ibuprofen 600 mg tablet 600 mg PO TID PRN (Reason: pain) Qty: 90 0RF Continued lirwdiecoc-ahhvrvi-kcjnrbpt 50-325-40 mg capsule 1 cap PO Q4H PRN MDD 1 PRN (Reason: migraine headache) Qty: 10 2RF medroxyprogesterone [Depo-Provera] 150 mg/mL suspension 150 mg IM Q12W Qty: 1 3RF sertraline 100 mg tablet 100 mg PO HS Discharge Instructions Additional Instructions: Cubital Tunnel Decompression Discharge Instructions Activity: You should stay in the sling for the first 2 weeks. You may come out of the sling for gentle motion and hygiene but should largely remain in the sling to allow the incision site to heal. Gentle motion of the elbow, hand, wrist, and fingers is okay and encouraged after the first few days, but no repetitive activites nor heavy lifting. You may apply ice. Medications: - You should take Tylenol and Ibuprofen around the clock. - You have been prescribed Hydrocodone for breakthrough pain. Dressings: - The initial surgical dressing should stay in place for 3 days. It may then be removed and kept clean and dry. You should cover with a light gauze dressing. - You may shower after 3 days and get the wound wet. Follow-up: 10 days Stand Alone Forms: Delroy Barrios Tunnel Release Equipment/Supplies: Sling Activity:: Activity as Tolerated Remove Dressings/Wound Care:: 72 hours Shower/Bathe:: 72 hours Diet:: As Tolerated Discharge Orders Discharge Orders: Discharge Order (Routine); Ordered 10/30/22 Ordered By: Attila Smith DS: Diagnosis Discharge Diagnosis (1) Cubital tunnel syndrome on left: Status: Acute (2) Bilateral carpal tunnel syndrome: Status: Acute
[2022-10-30] MEDS: Lactated Ringers 1,000 ML 80 ML IV (10:50)
--- NOTE | 2022-10-30 11:09 | W.ANESPRE ---
General Info Date of Service Date Performed: 10/30/22 Height: 5 ft 2 in Weight: 112.1 kg Body Mass Index (BMI): 45.1 Surgical Procedure: Operation Date: 10/30/22 11:55 Proposed Procedure Side Surgeon p Wrist ECTR Left Arsenio Potts MD s Cubital Tunnel Release Left Arsenio Potts MD Actual Procedure Side Surgeon p Wrist ECTR Left Arsenio Potts MD s Cubital Tunnel Release Left Arsenio Potts MD Pre-Op Diagnosis Post-Op Diagnosis L ECTR, L Cubital Tunnel Release L ECTR, L Cubital Tunnel Release Meds Allergies and Home Medications Allergies Allergy/AdvReac Type Severity Reaction Status Date / Time erythromycin base Allergy Intermediate Vomitting, Verified 10/28/22 15:05 itchy chocolate flavor Allergy Mild Hives Verified 10/28/22 15:05 Penicillins Allergy Mild Uncertain-infant Verified 10/28/22 15:05 reaction escitalopram AdvReac Palpitations, Verified 10/28/22 15:05 chest tightness coconut flavor Allergy Anaphylaxsi Uncoded 10/28/22 15:05 s Dust AdvReac itchy Uncoded 10/28/22 15:05 watery eyes Home Medication Medication Instructions Recorded sxlezuwbvl-bvmpsca-iubojjke 50 1 cap PO Q4H PRN PRN migraine 11/30/21 mg-325 mg-40 mg capsule headache #10 caps medroxyprogesterone 150 mg/mL 150 mg IM Q12W #1 mL 05/23/22 intramuscular suspension (Depo-Provera) sertraline 100 mg tablet 100 mg PO HS 07/01/22 acetaminophen 500 mg tablet 1,000 mg PO TID #90 tabs 10/30/22 hydrocodone 5 mg-acetaminophen 325 1 tab PO Q6H PRN pain #12 tabs 10/30/22 mg tablet ibuprofen 600 mg tablet 600 mg PO TID PRN pain #90 tabs 10/30/22 Current Visit Medications: Current Medications Generic Name Dose Route Start Last Admin Trade Name Freq PRN Reason Stop Dose Admin Acetaminophen 650 mg 10/30/22 10:17 Acetaminophen 325 Mg Tab PO 11/29/22 10:16 Q4H PRN PRN Hydrocodone Bitart/Acetaminophen 0 tab 10/30/22 10:17 Hydrocodone 5/Acetaminophen 325 Tab PO 11/29/22 10:16 Q3H PRN PRN Pain Ringer's Solution 1,000 mls @ 80 mls/hr 10/30/22 06:00 10/30/22 10:50 IV 11/28/22 23:59 80 mls/hr INFUSION CHEVY Administration Cefazolin Sodium/Dextrose 2 gm in 50 mls @ 100 mls/hr 10/30/22 06:00 Ancef Duplex IVPB 10/30/22 16:00 PREOP CHEVY IV Miscellaneous Supplies 1 each 10/30/22 06:00 Iv Access IV 11/28/22 23:59 DIRECTED CHEVY Sodium Chloride 0 ml 10/30/22 06:00 Normal Saline Flush 10 Ml Syr IV 11/28/22 23:59 PRN PRN Sodium Chloride 0 ml 10/30/22 06:00 Normal Saline 10 Ml Vial IJ 11/28/22 23:59 DIRECTED PRN Sterile Water 0 ml 10/30/22 06:00 Water,Injection,Sterile 10 Ml Vial IJ 11/28/22 23:59 DIRECTED PRN PFSH Active Problems Active Problems: Problem Status Onset Code Menstrual migraine without status migrainosus, not intractable 06/19/16 G43.829 Encounter for Depo-Provera contraception Z30.42 Major depressive disorder, recurrent episode F33.9 LGSIL on Pap smear of cervix R87.612 Alcohol dependence, binge pattern F10.20 Bilateral carpal tunnel syndrome G56.03 Tobacco use disorder F17.200 Obesity E66.9 Hyperlipidemia, unspecified E78.5 IFG (impaired fasting glucose) R73.01 Internal derangement of right knee 05/06/22 M23.91 MCL sprain of right knee S83.411A Fracture of ankle, lateral malleolus, right, closed S82.61XA Cubital tunnel syndrome on right G56.21 Cubital tunnel syndrome on left G56.22 Medical History Medical History 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 History of depression Pt reported on 12/29/20 Dx PPD after 1st child was born who is now 21 y/o. Has struggled with Depression symptoms on and off, not currently on medication, hx of counseling and medication. Would like to establish with a counselor. Internal derangement of left knee Surgical History Surgical History (Updated 10/30/22 @ 10:28 by Adrianne Mancia) section X4 History of carpal tunnel release cubital tunnel Status post left knee surgery (~2014) Cyst removal; Dr. Lnidquist Tobacco Smoking/Tobacco Use Status: Current every day Tobacco Type: cigarettes Counseling given: patient declined Alcohol Alcohol Intake: current Alcohol intake frequency: holidays/special occasions only Alcohol type: hard liquor Substance Use Substance use: Never Substance use type: does not use Details: alcohol: july 2022 Prental History History 4 Para 4 Hx # Term Pregnancies Multiple births Hx # Pregnancies Ectopic pregnancies AB induced Hx Number of Living Children AB spontaneous Vital Signs and Lab Results Vital Signs Most Recent Vital Signs in EMR: Most Recent Vital Signs Temp Pulse Resp BP Pulse Ox 36.5 C 81 20 135/81 98 10/30/22 10:32 10/30/22 10:32 10/30/22 10:32 10/30/22 10:32 10/30/22 10:32 Lab Results Blood Type / Crossmatch: No Data to Display Complete Blood Count: No Data to Display Complete Metabolic Panel: No Data to Display Liver Function Panel: No Data to Display Coagulation Panel: No Data to Display Cardiac Panel: No Data to Display Arterial Blood Gas: No Data to Display Venous Blood Gas: No Data to Display Pancreas Panel: No Data to Display Thyroid Panel: No Data to Display Infectious Disease: No Data to Display Blood Cultures: No Data to Display Toxicology Panel: No Data to Display Panel: No Data to Display Anesthesia Assessment and Plan Anesthesia History Personal History: No History of Anesthesia Complications Family History: No Family History of Anesthesia Complications Exercise Tolerance Exercise Tolerance: Metabolic Equivalents>4 Cardiac & Pulmonary Exam Cardiac Exam: Normal S1/S2 Heart Sounds Pulmonary Exam: Clear Bilateral Breath Sounds Implantable Cardiac Device Does patient have a Pacemaker or an ICD?: No Airway Exam Known Difficult Airway: No Mallampati Class: 3 Mouth Opening: Normal (> 3cm) Thyromental Distance: Greater than 3 cm Neck Range of Motion: Full ROM Neck Circumference: Thick Teeth Condition: Normal Dentition ASA Classification ASA Score: ASA 3 Emergency Case?: No NPO Status NPO Status: NPO Clears >2 hours, Solids >8 hours Status Status: Negative HCG Anesthesia Plan Resuscitation Status: Full Code Anesthesia Technique: General Anesthesia Airway Planned: Endotracheal Tube Monitors Used: Standard Monitors
--- NOTE | 2022-10-30 12:22 | HPE_ITS ---
Assessment and Plan Assessment and plan (1) Cubital tunnel syndrome on left: Status: Acute (2) Bilateral carpal tunnel syndrome: Status: Acute Assessment and plan: Marie is a 42-year-old female who has known carpal tunnel syndrome and cubital tunnel syndrome on the left side. She had a successful release on the right side. She is here today for that procedure. I once again reviewed the technical features of the case. I discussed risk to include bleeding, infection, pain, stiffness, continued symptoms, worsening numbness, nerve irritation or inflammation, nerve subluxation, superficial numbness, need for repeat procedures. Despite these risk, she elects to proceed. History of Present Illness History of Present Illness Chief Complaint: Left cubital tunnel syndrome, left carpal tunnel syndrome Narrative: Marie is a 42-year-old female who presents today for her left carpal tunnel and cubital tunnel. Please see the previous office note. She is status post right cubital tunnel release and carpal tunnel release with excellent results. She is having similar symptoms which are limiting her daily function and would like this improved. She denies any recent chest pain or shortness of breath or illness. Review of Systems All systems reviewed & are unremarkable except as noted in HPI and below PFSH All Active Problems Menstrual migraine without status migrainosus, not intractable (Chronic 06/19/16) well controlled w/ continuous Sprintec; 09/18 initiation of DMPA for control Encounter for Depo-Provera contraception (Acute) Major depressive disorder, recurrent episode (Chronic) LGSIL on Pap smear of cervix (Acute) Alcohol dependence, binge pattern (Acute) Bilateral carpal tunnel syndrome (Acute) s/p Right ECTR: 07/02/2022 s/p Left ECTR: 10/30/2022 Tobacco use disorder (Acute) Obesity (Chronic) Hyperlipidemia, unspecified (Acute) IFG (impaired fasting glucose) (Acute) Internal derangement of right knee (Acute 05/06/22) MCL sprain of right knee (Acute) Fracture of ankle, lateral malleolus, right, closed (Acute) Cubital tunnel syndrome on right (Acute) Cubital tunnel syndrome on left (Acute) S/P Release: 10/30/2022 Medical History 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 History of depression Pt reported on 12/29/20 Dx PPD after 1st child was born who is now 21 y/o. Has struggled with Depression symptoms on and off, not currently on medication, hx of counseling and medication. Would like to establish with a counselor. Internal derangement of left knee Surgical History section X4 History of carpal tunnel release cubital tunnel Status post left knee surgery (~2014) Cyst removal; Dr. Lindquist Family History Maternal Grandfather Substance use disorder Father Non-Hodgkin lymphoma Depression Son Depression Daughter Depression Heart disease Social History Smoking/Tobacco Use Status: Current every day Tobacco Type: cigarettes Tobacco: How many years used: 20 Quit status: considering quitting Counseling given: patient declined Smoking risk assessment performed?: Yes Alcohol Intake: current Alcohol Intake frequency: holidays/special occasions only Alcohol type: hard liquor Drug use: Never Substance use type: does not use Details: alcohol: july 2022 Adopted: No Caregiver/Support person: No Foster care: Yes Household members: spouse and children Housing: house Number of Children: 4 Education Level: high school Do you need help understanding health information?: Never current occupation: Residential Care for [employer] Pets and animals: Yes Pets and animals: dog(s) and other Details: didier Sexually active: Yes Do you think of yourself as: straight/heterosexual Current gender identity: female Other: from man who was father to her 4 children; remarried What is your relationship status?: How often do you talk on the phone with friends or family?: three or more times per week How often do you get together with friends or relatives?: three or more times per week Do you belong to any clubs or organized social groups?: yes Panel score (0-1 are the most socially isolated patients): 3 Brynn/Yarsani: None Special brynn needs: No Seatbelt use: sometimes Helmet use: Yes Helmet use: always Drive intox or ride w/intox tier truck driver: No Do you feel safe at home: Yes Do you feel safe in your relationship?: Yes Female Reproductive History Menstrual Age of Menarche: 15 control method: permanent sterilization History History 4 Para 4 Hx # Term Pregnancies Multiple births Hx # Pregnancies Ectopic pregnancies AB induced Hx Number of Living Children AB spontaneous Meds Allergies and Home Medications Allergies Allergy/AdvReac Type Severity Reaction Status Date / Time erythromycin base Allergy Intermediate Vomitting, Verified 10/28/22 15:05 itchy chocolate flavor Allergy Mild Hives Verified 10/28/22 15:05 Penicillins Allergy Mild Uncertain-infant Verified 10/28/22 15:05 reaction escitalopram AdvReac Palpitations, Verified 10/28/22 15:05 chest tightness coconut flavor Allergy Anaphylaxsi Uncoded 10/28/22 15:05 s Dust AdvReac itchy Uncoded 10/28/22 15:05 watery eyes Home Medications Medication Instructions Recorded Confirmed Type moslzrpsub-oqcpmjf-tflbaodo 50 1 cap PO Q4H PRN PRN migraine 11/30/21 10/30/22 Rx mg-325 mg-40 mg capsule headache #10 caps medroxyprogesterone 150 mg/mL 150 mg IM Q12W #1 mL 05/23/22 10/30/22 Rx intramuscular suspension (Depo-Provera) sertraline 100 mg tablet 100 mg PO HS 07/01/22 10/30/22 History acetaminophen 500 mg tablet 1,000 mg PO TID #90 tabs 10/30/22 Rx hydrocodone 5 mg-acetaminophen 325 1 tab PO Q6H PRN pain #12 tabs 10/30/22 Rx mg tablet ibuprofen 600 mg tablet 600 mg PO TID PRN pain #90 tabs 10/30/22 Rx Exam Const General: cooperative, healthy appearing, comfortable and no acute distress Resp Effort & Inspection: normal respiratory effort and able to speak in complete sentences Auscultation: clear to auscultation bilaterally Cardio Rate: regular rate Rhythm: regular rhythm Results Last Vital Signs Temp 36.5 C 10/30/22 10:32 Pulse 81 10/30/22 10:32 Resp 20 10/30/22 10:32 BP 135/81 10/30/22 10:32 Pulse Ox 98 10/30/22 10:32
[2022-10-30] MEDS: ceFAZolin 2 GM/50 ML BAG IVPB (12:53)
[2022-10-30] MEDS: Bupivacaine 0.5% Pres-Free W/EPI 30 ML VIAL (13:06)
--- NOTE | 2022-10-30 14:12 | ROE_ITS ---
Date of service: 10/30/22 Time of Service: 13:45 Operative Note Operative Note DATE OF PROCEDURE: 10/30/22 PRE-OP DIAGNOSIS: Left Carpal Tunnel and Left Cubital Tunnel Syndrome POST-OP DIAGNOSIS: same PROCEDURE: Left Endoscopic Carpal Tunnel Release and Left Cubital Tunnel Decompression SURGEON: Arsenio Potts CELLOPHANE BAG MACHINE OPERATOR: Carlos A Smith ANESTHESIA TYPE: General LMA/ETT Refer to Anesthesia Record ESTIMATED BLOOD LOSS: 0 PATHOLOGY: none sent TOURNIQUET TIME: 23 COMPLICATIONS: None Patient was transported to: PACU Patient's condition: stable Indications: Marie is a 42 year old female who has had symptoms of carpal and cubital tunnel syndrome. Nonoperative treatment options had been trialed. She had excellent results on the right side. Given failure of nonoperative treatments and persistent symptoms, I offered operative intervention. I reviewed the technical details of a carpal tunnel release and cubital tunnel decompression with possible anterior subcutaneous transposition. I reviewed the risk of the procedure to include bleeding, infection, pain, stiffness, nerve instability, damage to superficial nerves, persistent symptoms, and incomplete release. Despite these risks, the patient elected to proceed. Findings: The carpal tunnel was release with a standard endoscopic technique without difficulty and excellent visualization. There was a tightened cubital tunnel. The ulnar nerve was release from the first motor branch distally through the [place] proximally. Procedure Description: Marie was greeted in the preoperative holding area where the correct side was identified and marked. The consent was reviewed with the patient and signed. The history and physical was updated. All questions were answered. She was taken back to the operating room. The patient was placed into the supine position on the operating room table with the left arm on an arm board. A nonsterile tourniquet was placed high onto the arm, into the axilla. All bony prominences were well padded. Prophylactic antibiotics in the form of Cefazolin were administered. The right arm was then prepped with Chloraprep and draped in a standard fashion with stockinette and extremity drape. A timeout to confirm correct identity, side and site, procedure, allergies, anesthesia, and medical concerns was performed. The surgical site was marked in the volar wrist creases in line with the radial border of the fourth ray. This area was anesthetized with approximately 6cc of 0.5% Bupivacaine with Epinephrine. The surgical site about the medial elbow was drawn on the skin just posterior to the medial epicondyle borders. The planned surgical field was anesthetized with the same. The limb was then exsanguinated with an Esmarch. Starting with the carpal tunnel, the skin was incised with a 15 blade, approximately 1cm. The skin only was cut and the deeper tissue was dissected bluntly with a tenotomy scissor, avoiding passing nerve and venous structures. The fascia was penetrated and opened bluntly. A two-prong skin hook was placed under this proximal fascial edge. A series of hamate finders were used to identify and dilate the carpal tunnel. Synovial elevator was used to free synovial attachments to the underside of the transverse carpal ligament. My thumb was kept in the palm to carlos a the distal extent of the carpal tunnel and correctly position the hand. The Microaire endoscope was inserted without difficulty and without resistance. Excellent visualization showed horizontally running fibers of the transverse carpal ligament (TCL). The distal extent of the TCL was visualized and the end of the scope palpated with the thumb. The blade was elevated and withdrawn from distal to proximal. The TCL was split into two flaps. The endoscope was reinserted to confirm complete release and any remnant ligament was incised. The scope was withdrawn and the proximal aspect of the carpal tunnel was grossly inspected and appeared release with the median nerve visible. The antebrachial fascia at the level of the wrist was then freed from the overlying skin and then the underlying median nerve with blunt dissection. This was transected longitudinally for about 3cm proximal to the wrist incision. The wound was then irrigated with easy flow of irrigant distally and proximally. The incision was closed with a single 4-0 Nylon suture. Attention was then turned to the cubital tunnel release. The skin of the medial elbow was incised only with the elbow in some flexion and on a bump. The deep tissue and subcutaneous fat was dissected with a tenotomy scissors trying to protect any branches of the medial antebrachial cutaneous nerve. Any branches that were identified were retracted out of the way. The ulnar nerve was palpated and identified. A small window into the cubital tunnel, sheath overlying the nerve, was created and the nerve was able to be palpated with the Potter. A Metzenbaum scissor was then used to open up the sheath starting with Morton's ligament. I then worked distal over the ulnar nerve releasing any constraints against the nerve all the way to the fascia of the FCU muscle belly. This muscle belly was bluntly all the way down to the first motor branch of the ulnar nerve and the overlying fascia was incised. Likewise starting there at the medial epicondyle, I proceeded to work proximally to release any constraints over the ulnar nerve. This was taken all the way to the arcade of [place]. The medial intermuscular septum was also palpated and any sharp edges against the ulnar nerve were resected and released. After fully releasing the nerve it was inspected visually. I was also able to palpate the nerve fully and reach one finger up into the proximal and distal aspects to make sure there were no constraints against the nerve. A freer elevator was also used to slide easily against the ulnar nerve without any points of constriction. The arm was then taken through range of motion. The ulnar nerve did not sublux/dislocate out of its groove behind the lateral epicondyle. Therefore, no transposition was performed. The tourniquet was then deflated. Any areas of bleeding were cauterized with bipolar electrocautery. The wound was thoroughly irrigated. The deep tissue was closed with a 3-0 Vicryl. The skin was closed with a 4-0 nylon. The wounds were dressed with Xeroform, 4 x 4's, ABD, Kerlix and an Hi wrap. Marie was placed into a sling. Marie was transferred back to the PACU in a stable condition.
--- NOTE | 2022-10-30 14:35 | W.ANESPOSTOP ---
Postoperative Evaluation Date, Time and Location Date Performed: 10/30/22 Time Performed: 14:35 Patient Location: Day Surgery Unit Vital Signs Most Recent Imported Vital Signs: Most Recent Vital Signs Temp Pulse Resp BP Pulse Ox 36.2 C L 78 18 150/84 H 95 10/30/22 14:15 10/30/22 14:15 10/30/22 14:15 10/30/22 14:15 10/30/22 14:15 Pain Score Most Recent Pain Score: Most Recent Pain Score Pain Level 4 10/30/22 14:15 Assessment Mental Status: Awake (Alert & Oriented to Patient Baseline) Airway and Respiratory Function: Patent airway with normal (patient baseline) respiratory exam Cardiovascular Function: Hemodynamically Stable Hydration Status: Adequately Hydrated Nausea & Vomiting: No Nausea or Vomiting Pain: Pain is tolerable per patient Peripheral Nerve Block: Patient did not receive a nerve block
== END 2022-10-30 15:20 | disposition home or self-care (01) ==
PROVIDERS: PCP Nurse Practitioner Family; Visit Provider Student in an Organized Health Care Education/Training Program
PROC: 01N54ZZ Release Median Nerve, Percutaneous Endoscopic Approach (ICD-10-PCS; CPT 29848; principal; 2022-10-30 11:45)
PROC: (CPT 64718; 2022-10-30 11:45)
DX: G56.22 Lesion of ulnar nerve, left upper limb (principal); G56.03 Carpal tunnel syndrome, bilateral upper limbs
CPT/HCPCS: 64718; 29848; J0690; J1100; J1885; J2250; J2405; J2704

== ENCOUNTER 2023-02-26 01:45 | Outpatient (CLI) | payer OTHER, SELFPAY ==
[2023-02-26 09:14] LABS: ALT 19 U/L (14-59); AST 12 U/L (15-37); Albumin 3.7 g/dL (3.4-5.0); Alkaline Phosphatase 65 U/L (46-116); Anion Gap 6.4 mmol/L (3-11); BUN 17 mg/dL (7-18); Bilirubin, Total 0.4 mg/dL (0.2-1.0); CO2 24.6 mmol/L (21.0-32.0); CREATININE 0.8 mg/dL (0.55-1.02); Calcium 8.8 mg/dL (8.5-10.1); Calculated LDL 153 mg/dL (<100); Chloride 105 mmol/L (98-107); Cholesterol 211 mg/dL (<200); Estimated GFR 95.46 (mL/min/1.73m2); Glucose 114 mg/dL (74-106); HDL Cholesterol 41 mg/dL (40-60); Potassium 4.3 mmol/L (3.5-5.1); Sodium 136 mmol/L (136-145); Total Protein 7.3 g/dL (6.4-8.2); Triglyceride 89 mg/dL (<150)
[2023-02-26 09:39] LABS: Hemoglobin A1C 5.3 % (<5.7)
== END 2023-02-26 01:46 | disposition home or self-care (01) ==
LOC: LBO 01:45
PROVIDERS: Nurse Practitioner Family; PCP Nurse Practitioner; Referring Provider Nurse Practitioner; Visit Provider Nurse Practitioner
DX: E78.5 Hyperlipidemia, unspecified (principal); R73.01 Impaired fasting glucose
CPT/HCPCS: 36415; 80053; 80061; 83036

== ENCOUNTER 2023-07-06 19:42 | Emergency (ER) | payer OTHER, SELFPAY ==
--- NOTE | 2023-07-06 19:45 | DI.RAD_ITS ---
Exam(s) XR ANKLE RT COMPLETE EXAM: XR ANKLE RT COMPLETE CLINICAL HISTORY: Fall, Pain. TECHNIQUE: 2D digital imaging was performed. Three views. COMPARISON: CR XR ANKLE RT COMPLETE from 09/26/2022 FINDINGS: BONES: Bony density again noted beneath the lateral malleolus, old. No acute fracture is present. N o bony destructive lesion is seen. Calcaneal enthesophyte. JOINTS: The ankle mortise is normally aligned. SOFT TISSUE: Swelling. IMPRESSION: No acute abnormality. DATA REPOSITORY: RADIATION DOSE DELIVERED:
[2023-07-06 19:49] VITALS: BP 158/89; PULSE 89; RESP 22; TEMP 36.6; O2SAT 98
--- NOTE | 2023-07-06 19:57 | W.ED.GENAD ---
Discharge Plan Disposition Patient Disposition: Home Condition: Stable Discharge Details Clinical Impression: Right ankle sprain Primary Care Provider: Hope Sterling ED Provider: Rachel Estes Home Meds and New Rx's Prescriptions: Continued tgqlvcrjhh-okfpudb-optazzxy 50-325-40 mg capsule 1 cap PO Q4H PRN MDD 1 PRN (Reason: migraine headache) Qty: 10 1RF fluoxetine 20 mg tablet 40 mg PO DAILY Qty: 60 2RF Rx Instructions: Take 1 tab, qAM x 2 weeks then take 2 tabs, qAM (cross-tapering from sertraline) medroxyprogesterone [Depo-Provera] 150 mg/mL suspension 150 mg IM Q12W Qty: 1 3RF meloxicam 15 mg tablet 15 mg PO DAILY PRN acetaminophen 500 mg tablet 1,000 mg PO TID Qty: 90 0RF ibuprofen 600 mg tablet 600 mg PO TID PRN (Reason: pain) Qty: 90 0RF Discharge Instructions Instructions: Ankle Sprain (ED) Additional Instructions: No evidence of new fracture or broken bone on X-ray, you do have the old fracture, no new changes. Wear the splint as needed for stabilty and comfort. Follow up with primary care provider in 3-5 days. Return to ED sooner if any worsening or concerns. You may also follow up with Ortho if continued pain not relieved in a few weeks. Rest ice compression elevation. Please take Tylenol or Ibuprofen with food every 4-6 hours as needed for pain and swelling. Referrals: Arsenio Potts MD [ [facility] ST[facility]FF PHYSICIAN] - Return if symptoms worsen Hope Sterling NP [Primary Care Provider] - Return if symptoms worsen HPI General Mode of arrival: ambulatory. Date/Time Provider Initiated Documentation: 07/06/23 19:53. Limitations to Documentation: no limitations. Information obtained by: patient, RN notes reviewed and old records reviewed. HPI Narrative: 43-year-old female presents to the ER with chief complaint of trip and fall and right ankle swelling. Does have some lateral malleolus swelling and tenderness with palpation. No obvious deformity. Distal CMS and pulses intact. No proximal tenderness with palpation. Did not take any medications prior to arrival. Was able to ambulate without difficulty after fall. Related Data Home Medications Medication Instructions Recorded Confirmed acetaminophen 500 mg tablet 1,000 mg (2 x 500 mg) PO TID #90 10/30/22 07/06/23 tabs ibuprofen 600 mg tablet 600 mg PO TID PRN pain #90 tabs 10/30/22 07/06/23 [id number]-xodijfi-hfwysqlm 50 1 cap PO Q4H PRN PRN migraine 02/10/23 07/06/23 mg-325 mg-40 mg capsule headache #10 caps medroxyprogesterone 150 mg/mL 150 mg IM Q12W #1 mL 04/22/23 07/06/23 intramuscular suspension (Depo-Provera) fluoxetine 20 mg tablet 40 mg (2 x 20 mg) PO DAILY #60 tabs 05/01/23 07/06/23 meloxicam 15 mg tablet 15 mg PO DAILY PRN 07/06/23 07/06/23 Previous Rx's Medication Instructions Recorded acetaminophen 500 mg tablet 1,000 mg (2 x 500 mg) PO TID #90 10/30/22 tabs ibuprofen 600 mg tablet 600 mg PO TID PRN pain #90 tabs 10/30/22 wdccthpdbj-udjudul-cmtmqepi 50 1 cap PO Q4H PRN PRN migraine 02/10/23 mg-325 mg-40 mg capsule headache #10 caps medroxyprogesterone 150 mg/mL 150 mg IM Q12W #1 mL 04/22/23 intramuscular suspension (Depo-Provera) fluoxetine 20 mg tablet 40 mg (2 x 20 mg) PO DAILY #60 tabs 05/01/23 Allergies Allergy/AdvReac Type Severity Reaction Status Date / Time Fish Containing Products Allergy Severe Anaphylaxis Verified 05/30/23 11:46 shellfish derived Allergy Severe Anaphylaxis Verified 05/30/23 11:46 erythromycin base Allergy Intermediate Vomitting, Verified 05/30/23 11:46 itchy chocolate flavor Allergy Mild Hives Verified 05/30/23 11:46 Penicillins Allergy Mild Uncertain- Verified 05/30/23 11:46 reaction coconut Allergy Anaphylaxis Unverified 05/30/23 11:46 escitalopram AdvReac Palpitations, Verified 05/30/23 11:46 chest tightness coconut flavor Allergy Severe Anaphylaxsi Uncoded 05/30/23 11:46 s Dust AdvReac Intermediate itchy Uncoded 05/30/23 11:46 watery eyes General Stated Complaint: Orthopedic IMANI: 3 Review of Systems ENT Ears, Nose, Mouth, and Throat: Denies neck pain Musculoskeletal Musculoskeletal: Reports as per HPI, Denies back pain, Reports arthralgias, Reports joint swelling and Denies neck pain Exam Const General: cooperative, well developed and well groomed Nutritional Appearance: well nourished Orientation: alert, awake and oriented x3 Resp Effort & Inspection: normal respiratory effort and able to speak in complete sentences Extrem Right lower extremity: lower leg Details: normal to inspection, ankle Details: swelling Details: laterally and foot Details: normal capillary refill and normal to inspection; no tenderness Course Vital Signs Vital signs: Vital Signs Temperature 36.6 C 07/06/23 19:49 Pulse 89 07/06/23 19:49 Respiratory Rate 22 07/06/23 19:49 Blood Pressure 158/89 H 07/06/23 19:49 Pulse Oximetry 98 07/06/23 19:49 Temperature 36.6 C 07/06/23 19:49 Temperature Source Temporal Artery Scan 07/06/23 19:49 Pulse 89 07/06/23 19:49 Respiratory Rate 22 07/06/23 19:49 Respiratory Effort Normal 07/06/23 19:55 Blood Pressure 158/89 H 07/06/23 19:49 Blood Pressure Position Sitting 07/06/23 19:49 Pulse Oximetry 98 07/06/23 19:49 Oxygen Delivery Method Room Air 07/06/23 19:49 Oxygen Flow Rate 0 07/06/23 19:49 Pain Level 5 07/06/23 19:49 Medical Decision Making 43-year-old female presents to the ER with chief complaint of trip and fall and right ankle swelling. Does have some lateral malleolus swelling and tenderness with palpation. No obvious deformity. Distal CMS and pulses intact. No proximal tenderness with palpation. Did not take any medications prior to arrival. Was able to ambulate without difficulty after fall. XR ordered, Ibuprofen Patient placed in a lace up ankle splint, instructed on RICE procedures and home care and follow-up care. Quality:SDOH Health Related Social Needs: No Data to Display PFSH All Active Problems (Updated 07/06/23 @ 21:03 by Rachel Estes NP) Right ankle sprain (Acute) OCD (obsessive compulsive disorder) (Acute) ALESSANDRO (generalized anxiety disorder) (Acute) Depression (Chronic) Menstrual migraine without status migrainosus, not intractable (Chronic 06/19/16) well controlled w/ continuous Sprintec; 09/18 initiation of DMPA for control Major depressive disorder, recurrent episode (Chronic) Alcohol dependence, binge pattern (Acute) Tobacco use disorder (Acute) Obesity (Chronic) Hyperlipidemia, unspecified (Acute) IFG (impaired fasting glucose) (Acute) Internal derangement of right knee (Acute 05/06/22) MCL sprain of right knee (Acute) Medical History Depo-Provera contraceptive status For cycle control History of abnormal cervical Pap smear June 2022: NIL/HPV+ Declines colp Dec 2020: LSIL/HPV+ Declines colp Oct 2019: ASCUS/HPV+ -->colp: benign sample August 2018, 2017, 2016, 2014: NIL/HPV neg Jan 2013: NIL/HPV+ May 2012: ASCUS/HPV+ --> benign colp 2011: ASCUS/HPV+ 2010: NIL/HPV+ Nov 2009: ASCUS/HPV+ Apr 2009: LSIL June 2008: HSIL 2008: ASCUS cannot r/o HSIL/HPV+ 2007: LSIL cannot r/o HSIL --> Ex Bx:CIN2 Fracture of ankle, lateral malleolus, right, closed History of depression Pt reported on 12/29/20 Dx PPD after 1st child was born who is now 21 y/o. Has struggled with Depression symptoms on and off, not currently on medication, hx of counseling and medication. Would like to establish with a counselor. Internal derangement of left knee Surgical History Cubital tunnel syndrome on left S/P Release: 10/30/2022 Cubital tunnel syndrome on right S/P Release: 07/02/2022 Bilateral carpal tunnel syndrome s/p Right ECTR: 07/02/2022 s/p Left ECTR: 10/30/2022 Status post left knee surgery (~2014) Cyst removal; Dr. Lindquist section X4 Family History Maternal Grandfather Substance use disorder Father Non-Hodgkin lymphoma Depression Son Depression Daughter Depression Heart disease Social History Smoking/Tobacco Use Status: Current every day Tobacco Type: cigarettes Tobacco: How many years used: 20 Quit status: considering quitting Counseling given: patient declined Smoking risk assessment performed?: Yes Alcohol Intake: current Alcohol Intake frequency: holidays/special occasions only Alcohol type: hard liquor Drug use: Never Substance use type: does not use Details: alcohol: july 2022 Adopted: No Caregiver/Support person: No Foster care: Yes Household members: spouse and children Housing: house Number of Children: 4 Education Level: high school Do you need help understanding health information?: Never 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 [employer] Pets and animals: Yes Pets and animals: dog(s) and other Details: didier Sexually active: Yes Do you think of yourself as: straight/heterosexual Current gender identity: female Other: from man who was father to her 4 children; remarried What is your relationship status?: How often do you talk on the phone with friends or family?: three or more times per week How often do you get together with friends or relatives?: three or more times per week Do you belong to any clubs or organized social groups?: yes Panel score (0-1 are the most socially isolated patients): 3 What type of physical activity do you participate in: none Brynn/Jehovah'S Witness: None Special brynn needs: No Seatbelt use: sometimes Helmet use: Yes Helmet use: always Drive intox or ride w/intox restaurant delivery driver: No Working smoke detector in home: Yes Carbon monox detector in home: Yes Do you feel safe at home: Yes Do you feel safe in your relationship?: Yes Female Reproductive History Menstrual Age of Menarche: 15 control method: permanent sterilization History History 4 Para 4 Hx # Term Pregnancies Multiple births Hx # Pregnancies Ectopic pregnancies AB induced Hx Number of Living Children AB spontaneous
[2023-07-06] MEDS: Ibuprofen 600 MG TAB PO (20:00)
[2023-07-06 21:23] VITALS: BP 150/76; PULSE 76; RESP 22; TEMP 36.6; O2SAT 98
--- NOTE | 2023-07-06 21:45 | DI.VRAD_ITS ---
PROCEDURE INFORMATION: Exam: XR Right Ankle Exam date and time: 07/06/2023 8:22 PM Age: 43 years old Clinical indication: Ankle; Right; Patient HX: Fall, pain TECHNIQUE: Imaging protocol: Radiologic exam of the right ankle. Views: 3 or more views. COMPARISON: CR XR ANKLE RT COMPLETE 09/26/2022 10:33 AM FINDINGS: Bones/joints: Chronic, ununited lateral malleolus fracture. Small posterior calcaneal enthesophyte. No acute fracture or dislocation. Soft tissues: Right ankle soft tissue swelling. IMPRESSION: 1. No acute fracture or dislocation. 2. Chronic, ununited lateral malleolus fracture. 3. Right ankle soft tissue swelling. Dictated and Authenticated by: Josh Dallas MD. Ordering:INGRIS Ramos MD
== END 2023-07-06 21:25 | disposition home or self-care (01) ==
PROVIDERS: Emergency Provider Registered Nurse Emergency; PCP Nurse Practitioner
DX: S93.401A Sprain of unspecified ligament of right ankle, initial encounter (principal); E78.5 Hyperlipidemia, unspecified; F17.210 Nicotine dependence, cigarettes, uncomplicated; W01.0XXA Fall on same level from slipping, tripping and stumbling without subsequent striking against object, initial encounter; Y93.01 Activity, walking, marching and hiking; Y92.89 Other specified places as the place of occurrence of the external cause
CPT/HCPCS: 99283; 73610

== ENCOUNTER 2023-10-08 08:54 | Outpatient (REF) | payer OTHER, SELFPAY ==
--- NOTE | 2023-10-08 08:15 | PAPFT_PTH ---
PATIENT: Marie Lindsay LOC: [facility] U#:[id number] AGE/SX: 43/F ROOM: RE10/08/[address]: Peggy Figueroa NP : 1980 BED: DIS: 10/08/2023 SPEC #: [id number] RECD: 10/08/23 16:23 STATUS: BRINDA REWaldemar #: [id number] CARLITO: 10/08/23 08:[address]: Peggy Figueroa NP DEPT: [facility] Cytology RECD BY: Priti Haney ENTERED: 10/08/23 16:23 SP TYPE: PAPFT OTHR DR: Hope Sterling APRN Tissues: 1 - CX/ENDOCX FOR PAP SMEARS Procedures: PAP THIN PREP/[facility] Screening HPV DNA PROBE Comments: [id number] (HPV 16 & 18/45)
== END 2023-10-08 08:55 | disposition home or self-care (01) ==
LOC: LBN 08:54
PROVIDERS: PCP Nurse Practitioner; Visit Provider Nurse Practitioner Women's Health
DX: Z30.42 Encounter for surveillance of injectable contraceptive (principal); Z12.4 Encounter for screening for malignant neoplasm of cervix
CPT/HCPCS: 88142; 87624

== ENCOUNTER 2023-10-17 18:45 | Outpatient (REF) | payer OTHER, SELFPAY ==
[2023-10-17 10:59] LABS: Bilirubin Negative (Negative); Blood Trace-lysed (Negative); Clarity Cloudy (Clear); Glucose Negative (Negative); Ketones Negative (Negative); Leukocyte Esterase Moderate (Negative); Nitrite Positive (Negative); Specific Gravity >= 1.030 (1.005-1.025); Urobilinogen 0.2 mg/dL (Up to 0.2); pH 5.5 (5-8)
[2023-10-17 11:22] LABS: Bacteria Negative HPF (Negative); C & S Indicated? C&S Done As Ordered; Casts Negative LPF (Negative); Crystals Negative HPF (Negative); Epithelial Cells Negative HPF (Negative); Mucus Negative (Negative); Other Cells Negative (Negative); RBC Negative HPF (0-2); WBC >50 HPF (0-5)
== END 2023-10-17 18:46 | disposition home or self-care (01) ==
LOC: LBN 18:45
PROVIDERS: PCP Nurse Practitioner; Visit Provider Advanced Practice Midwife
DX: R30.0 Dysuria (principal); R82.89 Other abnormal findings on cytological and histological examination of urine; B96.29 Other Escherichia coli [E. coli] as the cause of diseases classified elsewhere
CPT/HCPCS: 87077; 81003; 81015; 87086; 87186